=== PATIENT | female | born 1935 ===

== ENCOUNTER 2017-02-05 12:36 | Emergency (ER) | payer MEDICARE, MEDICAID ==
[2017-02-05 12:51] VITALS: BP 146/76; PULSE 92; RESP 18; TEMP 97.8; O2SAT 99
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
--- NOTE | 2017-02-05 14:56 | CT ---
PROCEDURE: CT HEAD WITHOUT CONTRAST. HISTORY: trauma COMPARISON: Head CT without contrast 12/11/2013. TECHNIQUE: Axial computed tomography images were obtained through the head/brain without intravenous contrast. Radiation dose: Total exam DLP = 788.16 mGy-cm. This CT exam was performed using one or more of the following dose reduction techniques: Automated exposure control, adjustment of the mA and/or kV according to patient size, and/or use of iterative reconstruction technique. FINDINGS: HEMORRHAGE: No intracranial hemorrhage. BRAIN: There is minimal expansion of the ventricular sulcal sternal spaces further compatible with minimal increase in diffuse cerebral atrophy. No cortical edema or mass-effect is identified and there is no suspicious extra-axial fluid collection appreciated above or below the tentorium. Posterior fossa contents are unremarkable in for chronic lacune at the right eveline. Midline brain anatomy also reflects an empty sella. VENTRICLES: Unremarkable. No hydrocephalus. CALVARIUM: No fracture of the calvarium or skullbase identified. PARANASAL SINUSES: Left sphenoid sinus disease again evident. MASTOID AIR CELLS: Unremarkable as visualized. No inflammatory changes. OTHER FINDINGS: None. IMPRESSION: No acute intracranial findings. Prior head CT 12/11/2013. Minimal increase in limited age-related neuro degenerative changes as discussed above.
--- NOTE | 2017-02-05 16:13 | RAD ---
PROCEDURE: Right Wrist Radiographs. HISTORY: trauma COMPARISON: None. FINDINGS: BONES: No destructive lesion is identified throughout the wrist and there is no fracture identified either. The navicular bone appears intact. JOINTS: Limited cortical sclerosis appreciate throughout the wrist joints diffusely. No subluxation or dislocation appreciable. No instability type pattern. SOFT TISSUES: Normal. OTHER FINDINGS: None. IMPRESSION: Limited degenerative joint changes seen throughout the right wrist without fracture subluxation or dislocation appreciable. No destructive bony lesion.
--- NOTE | 2017-02-05 17:06 | RAD ---
PROCEDURE: Cervical Spine Radiographs. HISTORY: Pain. COMPARISON: None. FINDINGS: BONES: Minimal spondylolisthesis of C3 posterior to C4 is likely degenerative. No fracture. Dens Intact. No destructive bony findings. DISC SPACES: Mild mid to inferior multilevel cervical spondylosis. SOFT TISSUES: Normal. No prevertebral soft tissue swelling. OTHER FINDINGS: No significant neural foraminal stenosis is seen on oblique imaging. IMPRESSION: Minimal spondylolisthesis C3-4, likely degenerative. No fracture identified.
--- NOTE | 2017-02-05 17:08 | RAD ---
PROCEDURE: Radiographs of the Lumbar Spine. HISTORY: pain COMPARISON: Lumbar spine radiographs 03/08/2013. FINDINGS: BONES: Interval minimal spondylolisthesis L4-5 likely on the basis of facet arthropathy. No spondylolysis identified on oblique imaging. Lumbar curvature is otherwise preserved. No destructive bony lesion identified. DISC SPACES: Mild disc height loss L4-5 and L5-S1 is moderately diminished in height. Mild multilevel lumbar spondylosis appears diffuse. OTHER FINDINGS: None. IMPRESSION: Grade 1 spondylolisthesis is minimal at L4-5, likely on degenerative facet joint basis rather than spondylolysis. Mild multilevel degenerative disease appreciated.
--- NOTE | 2017-02-05 17:10 | RAD ---
PROCEDURE: Left Knee Radiographs. HISTORY: Pain. COMPARISON: None. FINDINGS: BONES: No destructive bony lesions identified or fracture. JOINTS: Joint space narrowing at the medial femorotibial and patellofemoral compartments is appreciate combined with cortical sclerosis and osteophyte development compatible with advanced osteoarthritis. Limited joint space narrowing seen the lateral femorotibial compartment. JOINT EFFUSION: None. OTHER FINDINGS: Vascular calcification identified at the posterior thigh and upper knee soft tissues. IMPRESSION: Bicompartmental osteoarthritis. No acute fracture dislocation identified.
== END 2017-02-05 15:18 | disposition home or self-care (01) ==
LOC: H.ER 12:36
DX: S09.90XA Unspecified injury of head, initial encounter (principal); M62.838 Other muscle spasm; V43.62XA Car passenger injured in collision with other type car in traffic accident, initial encounter; Y92.410 Unspecified street and highway as the place of occurrence of the external cause; E03.9 Hypothyroidism, unspecified; E05.90 Thyrotoxicosis, unspecified without thyrotoxic crisis or storm; F32.9 Major depressive disorder, single episode, unspecified; F41.9 Anxiety disorder, unspecified; I10 Essential (primary) hypertension; Z86.73 Personal history of transient ischemic attack (TIA), and cerebral infarction without residual deficits

== ENCOUNTER 2018-01-08 07:11 | Emergency (ER) | payer MEDICARE, MEDICAID ==
[2018-01-08 07:20] VITALS: BMI 41.1
[2018-01-08] MEDS ORDERED: Sodium Chloride 0.9% 1,000 ML IV STA (08:00)
--- NOTE | 2018-01-08 08:19 | ED PDOC ---
HPI: Back Time Seen by Provider: 01/08/18 07:35 Chief Complaint (Nursing): Back Pain Chief Complaint (Provider): Back Pain History Per: Patient History/Exam Limitations: no limitations Onset/Duration Of Symptoms: Days (1) Additional Complaint(s): 82 years old female with history of CVA, hypertension and high cholesterol presents to the ED for evaluation of subjective numbness and sleepiness of legs bilaterally associated with nausea, frequency of urination and dysuria onset yesterday. Patient also complains of right lower back pain and epigastric pain. She denies any fever, diarrhea, constipation or shortness of breath. PMD: non provided Past Medical History Reviewed: Historical Data, Nursing Documentation, Vital Signs Vital Signs: Last Vital Signs Temp 98.2 F 01/08/18 07:18 Pulse 101 H 01/08/18 07:18 Resp 22 01/08/18 07:18 BP 174/75 H 01/08/18 07:18 Pulse Ox 95 01/08/18 07:18 - Medical History PMH: Anxiety, CVA (x2), Depression, HTN, Hypercholesterolemia, Hyperthyroidism, Hypothyroidism (thyroidectomy) Denies: Diabetes, Hepatitis, HIV, Seizures, Sexually Transmitted Disease - Surgical History Surgical History: No Surg Hx - Family History Family History: States: Unknown Family Hx - Social History Current smoker - smoking cessation education provided: No Alcohol: None Drugs: Denies - Home Medications Home Medications: Ambulatory Orders Medication Instructions Recorded Acetaminophen/Codeine Phosph 1 tab PO TID #10 tab 02/11/15 [Acetaminophen and Codeine Phosphate #3 300 mg] Esomeprazole Magnesium [Nexium 20 mg PO DAILY #21 ecc 02/11/15 24Hr] Sucralfate [Carafate] 1 gm PO QID PRN #30 tablet 10/13/15 Azithromycin [Zithromax] 250 mg PO DAILY #6 tab 05/24/16 Naproxen [Naprosyn] 500 mg PO Q12H #20 tab 05/24/16 Metaxalone [Skelaxin] 800 mg PO BID PRN #10 tablet 02/05/17 Sulfamethoxazole/Trimethoprim 1 tab PO BID #6 tab 01/08/18 [Bactrim DS 800 mg-160 mg] - Allergies Allergies/Adverse Reactions: Allergies Allergy/AdvReac Type Severity Reaction Status Date / Time No Known Allergies Allergy Verified 10/13/15 19:41 Review of Systems ROS Statement: Except As Marked, All Systems Reviewed And Found Negative Constitutional: Negative for: Fever Respiratory: Negative for: Shortness of Breath Gastrointestinal: Positive for: Nausea, Abdominal Pain (epigastric). Negative for: Diarrhea Genitourinary Female: Positive for: Dysuria, Frequency Musculoskeletal: Positive for: Back Pain (Right lower) Physical Exam - Reviewed Vital Signs Reviewed: Yes - Physical Exam Appears: Positive for: Non-toxic, No Acute Distress Head Exam: Positive for: ATRAUMATIC, NORMOCEPHALIC Skin: Positive for: Normal Color, Warm, Dry ENT: Positive for: Normal ENT Inspection Respiratory: Positive for: Normal Breath Sounds, Other (Good air entry). Negative for: Wheezing, Respiratory Distress Gastrointestinal/Abdominal: Positive for: Tenderness (Epigastric) Back: Positive for: R CVA Tenderness Extremity: Positive for: Normal ROM, Other (Strength of 5/5). Negative for: Swelling Neurologic/Psych: Positive for: Alert, Oriented (x3). Negative for: Motor/ Sensory Deficits - Laboratory Results Result Diagrams: 01/08/18 09:09 01/08/18 09:09 Urine dip results: Negative for: Leukocyte Esterase, Blood, Nitrate, Ketones, Glucose, Bilirubin, Protein - ECG O2 Sat by Pulse Oximetry: 95 (RA) Pulse Ox Interpretation: Normal Medical Decision Making Medical Decision Making: Time: 758 Initial Impression: cistitis and pyelonephritis Initial Plan: --Labs --Pepcid 20 mg IVP ----- Scribe Attestation: Documented by Anaya Ramos, acting as a scribe for Mary Mendez MD. Provider Scribe Attestation: All medical record entries made by the Scribe were at my direction and personally dictated by me. I have reviewed the chart and agree that the record accurately reflects my personal performance of the history, physical exam, medical decision making, and the department course for this patient. I have also personally directed, reviewed, and agree with the discharge instructions and disposition. Disposition - Clinical Impression Clinical Impression: Dysuria - Patient ED Disposition Is Patient to be Admitted: No Doctor Will See Patient In The: Office Counseled Patient/Family Regarding: Diagnosis, Need For Followup, Rx Given - Disposition Referrals: Jose Hughes MD [Staff Provider] - Disposition: Routine/Home Disposition Time: 10:45 Condition: STABLE Prescriptions: Sulfamethoxazole/Trimethoprim [Bactrim DS 800 mg-160 mg] 1 tab PO BID #6 tab Instructions: Dysuria, Adult (DC) Forms: [employer] (Albanian) Print Language: CITIZEN OF [place] - POA Present On Arrival: None
[2018-01-08 09:13] LABS: BASO # 0.1 K/uL (0.0-0.2); BASO % 0.8 % (0.0-2.0); EOS # 0.1 K/uL (0.0-0.7); EOS % 1.1 % (0.0-4.0); LYMPH # 1.8 K/uL (1.0-4.3); LYMPH % 17.8 % (20.0-40.0); MEAN CELL VOLUME 77.4 fl (81.0-99.0); MEAN CORPUSCULAR HEMOGLOBIN 25.8 pg (27.0-31.0); MEAN CORPUSCULAR HGB CONC 33.3 g/dL (33.0-37.0); MEAN PLATELET VOLUME 7.7 fl (7.2-11.7); MONO # 0.5 K/uL (0.0-0.8); MONO % 4.8 % (0.0-10.0); NEUT # 7.5 K/uL (1.8-7.0); NEUT % 75.5 % (50.0-75.0); RBC 4.67 Mil/uL (3.80-5.20); RED CELL DISTRIBUTION WIDTH 17.6 % (11.5-14.5)
[2018-01-08 09:35] LABS: BLOOD UREA NITROGEN 19 mg/dl (7-17); GFR NON-AFRICAN AMERICAN > 60
[2018-01-08 09:39] LABS: ALB/GLOB RATIO 1.1 (1.0-2.1); ALBUMIN 4.5 g/dL (3.5-5.0); ALT/SGPT 14 U/L (9-52); AST/SGOT 69 U/L (14-36)
[2018-01-08 11:57] VITALS: BP 142/70; PULSE 76; RESP 17; TEMP 98; O2SAT 100
== END 2018-01-08 11:57 | disposition home or self-care (01) ==
LOC: H.ER 07:11
DX: R30.0 Dysuria (principal); E03.9 Hypothyroidism, unspecified; E05.90 Thyrotoxicosis, unspecified without thyrotoxic crisis or storm; E78.00 Pure hypercholesterolemia, unspecified; I10 Essential (primary) hypertension
CPT/HCPCS: 80053; 85025; 96374; 99283; J7030

== ENCOUNTER 2018-03-01 12:11 | Inpatient (IN) | payer MEDICARE, MEDICAID ==
[2018-03-01 12:11] VITALS: BMI 41.1
[2018-03-01] MEDS ORDERED: Sodium Chloride 0.9% 1,000 ML IV STA ×2 (12:54→14:17)
--- NOTE | 2018-03-01 13:05 | ED PDOC ---
HPI: CCC, URI, Sore Throat Time Seen by Provider: 03/01/18 12:41 Chief Complaint (Nursing): Fever Chief Complaint (Provider): Fever, sore throat History Per: Patient History/Exam Limitations: no limitations Onset/Duration Of Symptoms: Days (x2) Location Of Pain: Throat Associated Symptoms: Fever, Sore Throat, Nausea. denies: Vomiting, Diarrhea Additional Complaint(s): Vivian Parada is an 82 year old female, with a past medical history of HTN, hyperlipidemia and hypothyroidism, who presents to the emergency department complaining of fever, sore throat and difficulty swallowing associated with nausea onset for x2 days. Patient denies any vomiting, diarrhea or abdominal pain. No further medical complaints. PMD: None provided. Past Medical History Reviewed: Historical Data, Nursing Documentation, Vital Signs Vital Signs: Last Vital Signs Temp 99.3 F 03/01/18 12:20 Pulse 127 H 03/01/18 12:20 Resp 16 03/01/18 12:20 BP 178/79 H 03/01/18 12:20 Pulse Ox 94 L 03/01/18 12:20 - Medical History PMH: Anxiety, CVA (x2), Depression, HTN, Hypercholesterolemia, Hyperthyroidism, Hypothyroidism (thyroidectomy) Denies: Diabetes, Hepatitis, HIV, Seizures, Sexually Transmitted Disease - Surgical History Surgical History: No Surg Hx - Family History Family History: States: Unknown Family Hx - Allergies Allergies/Adverse Reactions: Allergies Allergy/AdvReac Type Severity Reaction Status Date / Time No Known Allergies Allergy Verified 03/01/18 12:20 Review of Systems ROS Statement: Except As Marked, All Systems Reviewed And Found Negative Constitutional: Positive for: Fever ENT: Positive for: Throat Pain Gastrointestinal: Positive for: Nausea. Negative for: Vomiting, Abdominal Pain, Diarrhea Physical Exam - Reviewed Nursing Documentation Reviewed: Yes Vital Signs Reviewed: Yes - Physical Exam Appears: Positive for: No Acute Distress Head Exam: Positive for: ATRAUMATIC, NORMAL INSPECTION, NORMOCEPHALIC Skin: Positive for: Normal Color, Warm, Dry Eye Exam: Positive for: Normal appearance, EOMI, PERRL ENT: Positive for: Other (throat is swollen with questionable deviation of uvula to the left. Positive trismus with hot-potato voice.) Neck: Positive for: Normal, Painless ROM, Supple Cardiovascular/Chest: Positive for: Regular Rate, Rhythm. Negative for: Murmur Respiratory: Positive for: Normal Breath Sounds. Negative for: Respiratory Distress Gastrointestinal/Abdominal: Positive for: Normal Exam, Soft. Negative for: Tenderness, Guarding, Rebound Back: Positive for: Normal Inspection. Negative for: L CVA Tenderness, R CVA Tenderness, Vertebral Tenderness Extremity: Positive for: Normal ROM (upper and lower extremities). Negative for: Deformity, Swelling Neurologic/Psych: Positive for: Alert, Oriented - Laboratory Results Result Diagrams: 03/01/18 11:50 03/01/18 11:50 - ECG O2 Sat by Pulse Oximetry: 94 (RA) Pulse Ox Interpretation: Abnormal Medical Decision Making Medical Decision Making: Time: 12:41 Initial Plan: --VBG Shock Panel --Neck Soft Tissue w/ contrast [CT] --CMP --CBC w/ differential --Cleocin 600 mg Sodium Chloride 0.9% 50 ml IVPB --Sodium Chloride 1,000 ml IV 100 mls/hr --Zofran Inj 4 mg IVP --Blood culture --Reevaluation 16:[address] FINDINGS: NASOPHARYNX: Mild mucosal thickening noted in the nasopharynx. SUPRAHYOID NECK: [id number] diffuse mucosal thickening noted in the oropharynx, oral cavity, parapharyngeal space and retropharyngeal space. Moderate enlargement of the palatine tonsils noted right more than left. There is no CT evidence of peritonsillar abscess formation. INFRAHYOID NECK: Unremarkable larynx, hypopharynx, and supraglottic space. Vocal cords intact. MASS: None. GLANDS: Parotid and submandibular glands unremarkable. The thyroid gland is not visualized. LYMPH NODES: Mildly enlarged level 1 and level 2 lymph nodes noted. CERVICAL SPINE: No fracture or focal lesion. VASCULAR STRUCTURES: Atherosclerotic disease and scattered calcification are noted in the carotid arteries. OTHER FINDINGS: Mucosal thickening noted in the left sphenoid sinus IMPRESSION: Moderate enlargement of the palatine tonsil without evidence of peritonsillar abscess. Diffuse [id number] mucosal thickening in the nasal and oral pharynx noted. Additional findings as described above. ----- Scribe Attestation: Documented by Jovani Ledbetter, acting as a scribe for Gigi Coughlin MD. Provider Scribe Attestation: All medical record entries made by the Scribe were at my direction and personally dictated by me. I have reviewed the chart and agree that the record accurately reflects my personal performance of the history, physical exam, medical decision making, and the department course for this patient. I have also personally directed, reviewed, and agree with the discharge instructions and disposition. Disposition - Clinical Impression Clinical Impression: Tonsillitis, Sepsis - Patient ED Disposition Is Patient to be Admitted: Yes - Disposition Disposition Time: 16:48 Condition: FAIR Forms: [employer] (Yi) - Pt Status Changed To: Hospital Disposition Of: Inpatient - Admit Certification Admit to Inpatient:: After my assessment, the patient will require hospitalization for at least two midnights. This is because of the severity of symptoms shown, intensity of services needed, and/or the medical risk in this patient being treated as an outpatient. - POA Present On Arrival: None
[2018-03-01] MEDS ORDERED: Clindamycin 600mg/50ml NS 600 MG/50 ML BAG IVPB SCH (13:30)
[2018-03-01] MEDS: Dexamethasone 6 MG in Sodium Chloride 0.9% 50 ML IVPB STA ×2 (13:40→13:59)
[2018-03-01] MEDS ORDERED: Dexamethasone 4 mg/1 ml IV ONE (13:45)
[2018-03-01 13:58] LABS: VENOUS BLOOD GAS BASE EXCESS 5.6 mmol/L (0.0-2.0); VENOUS BLOOD GAS PCO2 45 mmHg (40-60); VENOUS BLOOD GAS PO2 33 mm/Hg (30-55); VENOUS BLOOD PH 7.44 (7.32-7.43)
[2018-03-01] MEDS ORDERED: Dexamethasone 4 mg/1 ml ONE (14:03)
[2018-03-01] MEDS ORDERED: Acetaminophen 325 MG/10.15 ML ONE (14:12)
[2018-03-01] MEDS ORDERED: Clindamycin 600mg/50ml D5W 600 MG/50 ML VIAL IVPB SCH (14:15)
[2018-03-01 14:26] LABS: BASO # 0.1 K/uL (0.0-0.2); BASO % 0.3 % (0.0-2.0); EOS % 0.1 % (0.0-4.0); LYMPH % 5.3 % (20.0-40.0); MEAN CELL VOLUME 78.5 fl (81.0-99.0); MEAN CORPUSCULAR HEMOGLOBIN 25.2 pg (27.0-31.0); MEAN CORPUSCULAR HGB CONC 32.2 g/dL (33.0-37.0); MEAN PLATELET VOLUME 7.7 fl (7.2-11.7); MONO % 5.4 % (0.0-10.0); NEUT # 17.1 K/uL (1.8-7.0); NEUT % 88.9 % (50.0-75.0); PLATELET COUNT 277 K/uL (130-400); RBC 4.76 Mil/uL (3.80-5.20); RED CELL DISTRIBUTION WIDTH 17.1 % (11.5-14.5); WHITE BLOOD COUNT 19.2 K/uL (4.8-10.8)
[2018-03-01 14:30] LABS: ALB/GLOB RATIO 1.1 (1.0-2.1); ALBUMIN 4.5 g/dL (3.5-5.0); ALT/SGPT 30 U/L (9-52); AST/SGOT 45 U/L (14-36); BLOOD UREA NITROGEN 15 mg/dl (7-17); GFR NON-AFRICAN AMERICAN 60
[2018-03-01] MEDS ORDERED: Acetaminophen 160 mg/5 ml UD PO STA (14:33)
[2018-03-01] MEDS ORDERED: Acetaminophen 325 MG/10.15 ML PO STA (14:38)
[2018-03-01] MEDS ORDERED: Clindamycin 600mg/50ml D5W 600 MG/50 ML VIAL IVPB ONE (14:45)
[2018-03-01] MEDS ORDERED: Piperacillin/Tazobact 3.375 GM in Sodium Chloride 0.9% 100 ML IVPB STA (15:03)
[2018-03-01] MEDS ORDERED: Piperacillin/Tazobact 3.375 gm Inj IVPB ONE ×2 (15:22→21:36)
[2018-03-01 15:23] LABS: BANDS 5 % (0-2); EOSINOPHIL 1 % (0-7); LYMPHOCYTE 4 % (20-50); MONOCYTE 4 % (0-10); NEUTROPHIL 86 % (42-75); PLATELET ESTIMATE NORMAL (NORMAL); TOTAL CELLS COUNTED 100
[2018-03-01 15:24] LABS: ANISOCYTOSIS SLIGHT; MICROCYTOSIS SLIGHT
[2018-03-01] MEDS ORDERED: Iohexol 300 100 ML IJ ONE (15:49)
[2018-03-01] MEDS ORDERED: Sodium Chloride 0.9% 50 ML IV ONE (15:49)
--- NOTE | 2018-03-01 16:39 | CT ---
Date of service: 03/01/2018 PROCEDURE: CT NECK WITH CONTRAST HISTORY: peritonsillar abscess COMPARISON: None available. TECHNIQUE: CT of the neck with intravenous contrast. Coronal and sagittal reformats generated. Intravenous contrast dose: 80 cc of Omnipaque 300 intravenously. Radiation dose: Total exam DLP = 354.42 mGy-cm. This CT exam was performed using one or more of the following dose reduction techniques: Automated exposure control, adjustment of the mA and/or kV according to patient size, and/or use of iterative reconstruction technique. FINDINGS: NASOPHARYNX: Mild mucosal thickening noted in the nasopharynx. SUPRAHYOID NECK: [id number] diffuse mucosal thickening noted in the oropharynx, oral cavity, parapharyngeal space and retropharyngeal space. Moderate enlargement of the palatine tonsils noted right more than left. There is no CT evidence of peritonsillar abscess formation. INFRAHYOID NECK: Unremarkable larynx, hypopharynx, and supraglottic space. Vocal cords intact. MASS: None. GLANDS: Parotid and submandibular glands unremarkable. The thyroid gland is not visualized. LYMPH NODES: Mildly enlarged level 1 and level 2 lymph nodes noted. CERVICAL SPINE: No fracture or focal lesion. VASCULAR STRUCTURES: Atherosclerotic disease and scattered calcification are noted in the carotid arteries. OTHER FINDINGS: Mucosal thickening noted in the left sphenoid sinus IMPRESSION: Moderate enlargement of the palatine tonsil without evidence of peritonsillar abscess. Diffuse [id number] mucosal thickening in the nasal and oral pharynx noted. Additional findings as described above.
[2018-03-01 17:56] LABS: SQUAMOUS EPITHIAL < 1 /hpf (0-5); URINE BILIRUBIN NEGATIVE (NEGATIVE); URINE BLOOD MODERATE (NEGATIVE); URINE CLARITY CLEAR (Clear); URINE COLOR YELLOW (YELLOW); URINE GLUCOSE (UA) NEG (Normal); URINE LEUKOCYTE ESTERASE NEG Leu/uL (Negative); URINE PROTEIN NEGATIVE (NEGATIVE); URINE UROBILINOGEN 0.2-1.0 mg/dL (0.2-1.0)
[2018-03-01 17:58] LABS: VENOUS BLOOD GAS PCO2 45 mmHg (40-60); VENOUS BLOOD GAS PO2 43 mm/Hg (30-55); VENOUS BLOOD PH 7.42 (7.32-7.43)
--- NOTE | 2018-03-01 18:24 | CP.PCM.HP ---
<Froylan Arellano - Last Filed: 03/01/18 20:33> History of Present Illness - History of Present Illness History of Present Illness: This is 82 y/o female with PMH of HTN, hypothyroid, and CVA x2 admitted to [facility] for evaluation and treatment of tonsillitis and sepsis. Patient came in c/o 2 days history of sore throat, difficulty swallowing, subjective fever and generalized weakness. Patient denies any sick contact at home, lives alone, sore throat started all the sudden which is associated with b/l ear discomfort and subjective fever. Patient is reporting difficulty swallowing due to pain, didnt take her medications today due to pain. + nausea, denies any vomiting, chest pain, SOB, dizziness, abdominal pain or dysuria. PMD: dr johnson PMH: HTN, hypothyroid, and CVA x2 PSH: Thyroid removed, BTL, R knee surgery Allg: NKDA Meds: As per med recs SH: Denies any alcohol/smoking or illicit drug use FH: Denies any cancers, + for DM and HTN ROS: As per HPI ED course: VS: 101.7, 127HR, BP 178/78, Spo2 94% CBC: WBC 19.2 CMP: wnl VBG: Lact 2.2--> 0.9 f/u Ucx and Bcx CXR: Congested, f/u official read f/u Rapid strep and Influenza UA negative ENT consult, Dr. Mccormick S/p Zosyn, Clinda, tylenol, IVF and Dexomethason CT Throat: IMPRESSION: Moderate enlargement of the palatine tonsil without evidence of peritonsillar abscess. Diffuse [id number] mucosal thickening in the nasal and oral pharynx noted. Additional findings as described above. Present on Admission - Present on Admission Any Indicators Present on Admission: No Past Patient History - Infectious Disease Hx of Infectious Diseases: None - Past Social History Smoking Status: Never Smoked - CARDIAC Hx Hypercholesterolemia: Yes Hx Hypertension: Yes - PULMONARY Hx Tuberculosis: No - NEUROLOGICAL Hx Seizures: No - ENDOCRINE/METABOLIC Hx Hyperthyroidism: Yes Hx Hypothyroidism: Yes (thyroidectomy) - HEMATOLOGICAL/ONCOLOGICAL Hx Human Immunodeficiency Virus (HIV): No - GENITOURINARY/GYNECOLOGICAL Hx Sexually Transmitted Disorders: No - PSYCHIATRIC Hx Anxiety: Yes Hx Depression: Yes - SURGICAL HISTORY Hx Musculoskeletal Surgery: Yes (right foot) Hx Thyroidectomy: Yes - ANESTHESIA Hx Anesthesia: Yes Meds Allergies/Adverse Reactions: Allergies Allergy/AdvReac Type Severity Reaction Status Date / Time No Known Allergies Allergy Verified 03/01/18 12:20 Physical Exam - Constitutional Appears: No Acute Distress - Head Exam Head Exam: NORMAL INSPECTION - Eye Exam Eye Exam: EOMI, Normal appearance, PERRL Pupil Exam: NORMAL ACCOMODATION - ENT Exam ENT Exam: Mucous Membranes Moist, Normal External Ear Exam, TM's Normal Bilaterally Additional comments: b/l pharyngeal swelling and erythema Red swollen tonsils No exudate was seen - Neck Exam Neck exam: Positive for: Tenderness - Respiratory Exam Respiratory Exam: Clear to Auscultation Bilateral, NORMAL BREATHING PATTERN. absent: Accessory Muscle Use - Cardiovascular Exam Cardiovascular Exam: REGULAR RHYTHM, +S1, +S2 - GI/Abdominal Exam GI & Abdominal Exam: Normal Bowel Sounds - Extremities Exam Extremities exam: Positive for: normal capillary refill, normal inspection. Negative for: pedal edema, tenderness - Back Exam Back exam: absent: CVA tenderness (L), CVA tenderness (R) - Neurological Exam Neurological exam: Alert, CN II-XII Intact, Oriented x3 - Psychiatric Exam Psychiatric exam: Normal Affect - Skin Skin Exam: Dry, Intact, Normal Color, Warm Results - Vital Signs Recent Vital Signs: Last Vital Signs Temp 101.7 F H 03/01/18 14:41 Pulse 127 H 03/01/18 12:20 Resp 16 03/01/18 12:20 BP 178/79 H 03/01/18 12:20 Pulse Ox 94 L 03/01/18 16:48 - Labs Result Diagrams: 03/01/18 11:50 03/01/18 11:50 Labs: Laboratory Results - last 24 hr 03/01/18 03/01/18 03/01/18 11:50 11:50 13:46 WBC 19.2 H D RBC 4.76 Hgb 12.0 Hct 37.4 MCV 78.5 L MCH 25.2 L MCHC 32.2 L RDW 17.1 H Plt Count 277 MPV 7.7 Neut % (Auto) 88.9 H Lymph % (Auto) 5.3 L [place] % (Auto) 5.4 Eos % (Auto) 0.1 Baso % (Auto) 0.3 Neut # (Auto) 17.1 H Lymph # (Auto) 1.0 [place] # (Auto) 1.0 H Eos # (Auto) 0.0 Baso # (Auto) 0.1 Neutrophils % (Manual) 86 H Band Neutrophils % 5 H Lymphocytes % (Manual) 4 L Monocytes % (Manual) 4 Eosinophils % (Manual) 1 Platelet Estimate Normal Anisocytosis (manual) Slight Microcytosis (manual) Slight pO2 33 VBG pH 7.44 H VBG pCO2 45 VBG HCO3 28.5 VBG Total CO2 32.0 H VBG O2 Sat (Calc) 69.7 H VBG Base Excess 5.6 H VBG Potassium 4.2 Glucose 136 H Lactate 2.2 H FiO2 21.0 Sodium 137 135.0 Potassium 3.9 Chloride 97 L 99.0 Carbon Dioxide 29 Anion Gap 15 BUN 15 Creatinine 0.9 Est GFR ( Amer) > 60 Est GFR (Non-Af Amer) 60 Random Glucose 131 H Calcium 9.0 Total Bilirubin 0.4 AST 45 H D ALT 30 Alkaline Phosphatase 107 Total Protein 8.6 H Albumin 4.5 Globulin 4.2 H Albumin/Globulin Ratio 1.1 Venous Blood Potassium 4.2 Urine Color Urine Clarity Urine pH Ur Specific Omega Urine Protein Urine Glucose (UA) Urine Ketones Urine Blood Urine Nitrate Urine Bilirubin Urine Urobilinogen Ur Leukocyte Esterase Urine RBC (Auto) Urine Microscopic WBC Ur Squamous Epith Cells 03/01/18 03/01/18 17:45 17:50 WBC RBC Hgb Hct MCV MCH MCHC RDW Plt Count MPV Neut % (Auto) Lymph % (Auto) Bosque % (Auto) Eos % (Auto) Baso % (Auto) Neut # (Auto) Lymph # (Auto) [place] # (Auto) Eos # (Auto) Baso # (Auto) Neutrophils % (Manual) Band Neutrophils % Lymphocytes % (Manual) Monocytes % (Manual) Eosinophils % (Manual) Platelet Estimate Anisocytosis (manual) Microcytosis (manual) pO2 43 VBG pH 7.42 VBG pCO2 45 VBG HCO3 27.6 VBG Total CO2 30.6 H VBG O2 Sat (Calc) 83.5 H VBG Base Excess 4.0 H VBG Potassium 3.7 Glucose 167 H Lactate 0.9 FiO2 21.0 Sodium 133.0 Potassium Chloride 100.0 Carbon Dioxide Anion Gap BUN Creatinine Est GFR ( Amer) Est GFR (Non-Af Amer) Random Glucose Calcium Total Bilirubin AST ALT Alkaline Phosphatase Total Protein Albumin Globulin Albumin/Globulin Ratio Venous Blood Potassium 3.7 Urine Color Yellow Urine Clarity Clear Urine pH 6.0 Ur Specific Omega 1.025 Urine Protein Negative Urine Glucose (UA) Neg Urine Ketones Negative Urine Blood Moderate Urine Nitrate Negative Urine Bilirubin Negative Urine Urobilinogen 0.2-1.0 Ur Leukocyte Esterase Neg Urine RBC (Auto) 2 Urine Microscopic WBC 1 Ur Squamous Epith Cells < 1 Assessment & Plan - Assessment and Plan (Free Text) Assessment: A/P: 82 y/o female with PMH of HTN, hypothyroid, and CVA x2 admitted to [facility] for evaluation and treatment of tonsillitis and sepsis. Sepsis, criterias met with elevated HR, Tm and tonsillitis - Acute - S/p IVF, Zosyna nd clinda - Normal Lactate/VBG - C/w IVF - C/w Zosyn 3.3gm Q12, day # 0 - C/w Clinda 600mg Q8H, day # 0 - F/u Ucx and Bcx - Monitor VS closely Tonsillitis/Pharyngitis - Acute - CT: Tonsillitis, no abscess - ENT consult, Dr. Mccormick, f/u recommendations - Cephacol, c/w symptomatic management - Rapid Strep Throat negative, repeat in morning - C/w Fluids and Abx - C/w Dexamethason 6mg Q8H - Advance diet as tolerated Positive influenza A - STart Tamiflu 75mg PO BID for 0/5days - Encourage PO intake - Symptomatic/supportive management Congested CXR, possible fluid overload - F/u official CXR - Follow up Echo in morning - F/p pro-BNP Hypertension - Chronic - Controlled - C/w Home medications: Norvasc 10mg daily, HCTZ/Losartan 12.5/50mg 2tabs daily - C/w Aspirin and Statin - F/u HBA1C, Lipids, TSH Gastritis - Chronic, controlled - C/w Protonix 40mg PO daily Mood disorders - C/w Klonopin and Remeron DVT PPX - SCD for now <Zurdo Vann - Last Filed: 03/02/18 09:39> Results - Vital Signs Recent Vital Signs: Last Vital Signs Temp 97.9 F 03/02/18 09:11 Pulse 86 03/02/18 09:11 Resp 18 03/02/18 09:11 BP 138/70 03/02/18 09:11 Pulse Ox 97 03/02/18 09:11 - Labs Result Diagrams: 03/02/18 06:00 03/01/18 11:50 Labs: Laboratory Results - last 24 hr 03/01/18 03/01/18 03/01/18 11:50 11:50 13:46 WBC 19.2 H D RBC 4.76 Hgb 12.0 Hct 37.4 MCV 78.5 L MCH 25.2 L MCHC 32.2 L RDW 17.1 H Plt Count 277 MPV 7.7 Neut % (Auto) 88.9 H Lymph % (Auto) 5.3 L [place] % (Auto) 5.4 Eos % (Auto) 0.1 Baso % (Auto) 0.3 Neut # (Auto) 17.1 H Lymph # (Auto) 1.0 [place] # (Auto) 1.0 H Eos # (Auto) 0.0 Baso # (Auto) 0.1 Neutrophils % (Manual) 86 H Band Neutrophils % 5 H Lymphocytes % (Manual) 4 L Monocytes % (Manual) 4 Eosinophils % (Manual) 1 Platelet Estimate Normal Plt Clumps, EDTA Large Platelets Anisocytosis (manual) Slight Microcytosis (manual) Slight pO2 33 VBG pH 7.44 H VBG pCO2 45 VBG HCO3 28.5 VBG Total CO2 32.0 H VBG O2 Sat (Calc) 69.7 H VBG Base Excess 5.6 H VBG Potassium 4.2 Glucose 136 H Lactate 2.2 H FiO2 21.0 Sodium 137 135.0 Potassium 3.9 Chloride 97 L 99.0 Carbon Dioxide 29 Anion Gap 15 BUN 15 Creatinine 0.9 Est GFR ( Amer) > 60 Est GFR (Non-Af Amer) 60 Random Glucose 131 H Calcium 9.0 Total Bilirubin 0.4 AST 45 H D ALT 30 Alkaline Phosphatase 107 Total Protein 8.6 H Albumin 4.5 Globulin 4.2 H Albumin/Globulin Ratio 1.1 Free T4 Venous Blood Potassium 4.2 Urine Color Urine Clarity Urine pH Ur Specific Omega Urine Protein Urine Glucose (UA) Urine Ketones Urine Blood Urine Nitrate Urine Bilirubin Urine Urobilinogen Ur Leukocyte Esterase Urine RBC (Auto) Urine Microscopic WBC Ur Squamous Epith Cells Influenza Typ A,B (EIA) Grp A Beta Strep Ag 03/01/18 03/01/18 03/01/18 17:45 17:50 19:01 WBC RBC Hgb Hct MCV MCH MCHC RDW Plt Count MPV Neut % (Auto) Lymph % (Auto) Bosque % (Auto) Eos % (Auto) Baso % (Auto) Neut # (Auto) Lymph # (Auto) [place] # (Auto) Eos # (Auto) Baso # (Auto) Neutrophils % (Manual) Band Neutrophils % Lymphocytes % (Manual) Monocytes % (Manual) Eosinophils % (Manual) Platelet Estimate Plt Clumps, EDTA Large Platelets Anisocytosis (manual) Microcytosis (manual) pO2 43 VBG pH 7.42 VBG pCO2 45 VBG HCO3 27.6 VBG Total CO2 30.6 H VBG O2 Sat (Calc) 83.5 H VBG Base Excess 4.0 H VBG Potassium 3.7 Glucose 167 H Lactate 0.9 FiO2 21.0 Sodium 133.0 Potassium Chloride 100.0 Carbon Dioxide Anion Gap BUN Creatinine Est GFR ( Amer) Est GFR (Non-Af Amer) Random Glucose Calcium Total Bilirubin AST ALT Alkaline Phosphatase Total Protein Albumin Globulin Albumin/Globulin Ratio Free T4 Venous Blood Potassium 3.7 Urine Color Yellow Urine Clarity Clear Urine pH 6.0 Ur Specific Omega 1.025 Urine Protein Negative Urine Glucose (UA) Neg Urine Ketones Negative Urine Blood Moderate Urine Nitrate Negative Urine Bilirubin Negative Urine Urobilinogen 0.2-1.0 Ur Leukocyte Esterase Neg Urine RBC (Auto) 2 Urine Microscopic WBC 1 Ur Squamous Epith Cells < 1 Influenza Typ A,B (EIA) Grp A Beta Strep Ag Negative 03/01/18 03/02/18 03/02/18 19:01 06:00 06:00 WBC 22.9 H RBC 4.80 Hgb 12.1 Hct 38.6 MCV 80.4 L MCH 25.3 L MCHC 31.4 L RDW 17.3 H Plt Count 264 MPV 7.8 Neut % (Auto) 93.2 H Lymph % (Auto) 5.0 L [place] % (Auto) 1.7 Eos % (Auto) 0.0 Baso % (Auto) 0.1 Neut # (Auto) 21.4 H Lymph # (Auto) 1.1 [place] # (Auto) 0.4 Eos # (Auto) 0.0 Baso # (Auto) 0.0 Neutrophils % (Manual) 92 H Band Neutrophils % Lymphocytes % (Manual) 7 L Monocytes % (Manual) 1 Eosinophils % (Manual) Platelet Estimate Normal Plt Clumps, EDTA Present Large Platelets Present Anisocytosis (manual) Slight Microcytosis (manual) pO2 VBG pH VBG pCO2 VBG HCO3 VBG Total CO2 VBG O2 Sat (Calc) VBG Base Excess VBG Potassium Glucose Lactate FiO2 Sodium Potassium Chloride Carbon Dioxide Anion Gap BUN Creatinine Est GFR ( Amer) Est GFR (Non-Af Amer) Random Glucose Calcium Total Bilirubin AST ALT Alkaline Phosphatase Total Protein Albumin Globulin Albumin/Globulin Ratio Free T4 1.65 Venous Blood Potassium Urine Color Urine Clarity Urine pH Ur Specific Omega Urine Protein Urine Glucose (UA) Urine Ketones Urine Blood Urine Nitrate Urine Bilirubin Urine Urobilinogen Ur Leukocyte Esterase Urine RBC (Auto) Urine Microscopic WBC Ur Squamous Epith Cells Influenza Typ A,B (EIA) Pos for influenza a H Grp A Beta Strep Ag Attending/Attestation - Attestation I have personally seen and examined this patient.: Yes I have fully participated in the care of the patient.: Yes I have reviewed all pertinent clinical information: Yes Notes (Text): Patient seen and examined with the resident, agree with above
[2018-03-01] MEDS ORDERED: Patient's Own Med (Diclofenac Sodium [Voltaren] 1 APPL) TOP PRN (18:34)
[2018-03-01] MEDS: Piperacillin/Tazobact 3.375 GM in Sodium Chloride 0.9% 100 ML IVPB SCH (21:40)
[2018-03-02] MEDS ORDERED: Clindamycin 600mg/50ml NS 600 MG/50 ML BAG IVPB SCH (01:00)
[2018-03-02] MEDS ORDERED: Dexamethasone 6 MG in Sodium Chloride 0.9% 50 ML IVPB SCH (01:00)
[2018-03-02] MEDS ORDERED: Dexamethasone 4 mg/1 ml ONE ×2 (01:11→12:04)
[2018-03-02] MEDS: Dexamethasone 4 mg/1 ml IVP SCH ×3 (01:12→17:56)
[2018-03-02] MEDS: Clindamycin 600mg/50ml D5W 600 MG/50 ML VIAL IVPB SCH ×4 (01:15→17:55)
[2018-03-02] MEDS: Levothyroxine 100 MCG TAB PO SCH (06:27)
[2018-03-02 07:35] LABS: BASO % 0.1 % (0.0-2.0); HEMOGLOBIN 12.1 g/dL (12.0-16.0); LYMPH # 1.1 K/uL (1.0-4.3); MEAN CELL VOLUME 80.4 fl (81.0-99.0); MEAN CORPUSCULAR HEMOGLOBIN 25.3 pg (27.0-31.0); MEAN CORPUSCULAR HGB CONC 31.4 g/dL (33.0-37.0); MEAN PLATELET VOLUME 7.8 fl (7.2-11.7); MONO # 0.4 K/uL (0.0-0.8); MONO % 1.7 % (0.0-10.0); NEUT # 21.4 K/uL (1.8-7.0); NEUT % 93.2 % (50.0-75.0); NRBC % 0.1 % (0.0-0.0); PLATELET COUNT 264 K/uL (130-400); RED CELL DISTRIBUTION WIDTH 17.3 % (11.5-14.5); WHITE BLOOD COUNT 22.9 K/uL (4.8-10.8)
[2018-03-02 08:39] LABS: LYMPHOCYTE 7 % (20-50); MONOCYTE 1 % (0-10); NEUTROPHIL 92 % (42-75); TOTAL CELLS COUNTED 100
[2018-03-02 08:40] LABS: ANISOCYTOSIS SLIGHT; PLATELET ESTIMATE NORMAL (NORMAL)
[2018-03-02 08:42] LABS: LARGE PLATELETS PRESENT
[2018-03-02 08:43] LABS: PLATELET CLUMPS PRESENT
--- NOTE | 2018-03-02 09:31 | CP.PCM.PN ---
<Boyd Novoa - Last Filed: 03/02/18 14:10> Subjective - Date & Time of Evaluation Date of Evaluation: 03/02/18 Time of Evaluation: 09:27 - Subjective Subjective: 82 y/o female patient seen and evaluated for tonsillitis and sepsis. Patient Patient states that she still has sore throat. She states that her she is still feverish but better than when she was last seen. She states that she had chills yesterday but today she didn't have any. She denies any nausea since she was last seen, denies any vomiting, chest pain, dizziness, abdominal pain or dysuria. She states that she has some SOB. Objective - Vital Signs/Intake and Output Vital Signs (last 24 hours): Temp Pulse Resp BP Pulse Ox 97.9 F 86 18 138/70 97 03/02/18 09:11 03/02/18 09:11 03/02/18 09:11 03/02/18 09:11 03/02/18 09:11 - Medications Medications: Current Medications Acetaminophen (Tylenol 325mg Tab) 650 mg PO Q6 PRN PRN Reason: Fever >100.4 F Amlodipine Besylate (Norvasc) 10 mg PO DAILY [facility] Aspirin (Ecotrin) 81 mg PO DAILY [facility] Benzocaine/Menthol (Cepacol Sore Throat) 1 trav PO Q2 PRN PRN Reason: Sore Throat Clonazepam (Klonopin) 1 mg PO Q12 [facility] Last Admin: 03/01/18 21:39 Dose: 1 mg Dexamethasone (Decadron Inj) 6 mg IVP Q8 [facility] Last Admin: 03/02/18 01:12 Dose: 6 mg HCTZ/Losartan Potassium (Hyzaar 12.5 Mg-50 Mg) 2 tab PO DAILY [facility] Home Med (Diclofenac Sodium [Voltaren]) 1 appl TOP Q6 PRN PRN Reason: Pain, Mild (1-3) Piperacillin Sod/Tazobactam (Sod 3.375 gm/ Sodium Chloride) 100 mls @ 100 mls/hr IVPB Q12 [facility]; Protocol Last Admin: 03/01/18 21:40 Dose: 100 mls/hr Clindamycin Phosphate (Cleocin) 600 mg in 50 mls @ 50 mls/hr IVPB Q8 [facility]; Protocol Last Admin: 11/06/18 01:18 Dose: 50 mls/hr Levothyroxine Sodium (Synthroid) 100 mcg PO DAILY@0630 [facility] Last Admin: 03/02/18 06:27 Dose: 100 mcg Mirtazapine (Remeron 15mg Odt) 15 mg PO HS [facility] Last Admin: 03/01/18 23:17 Dose: 15 mg Montelukast Sodium (Singulair) 10 mg PO HS [facility] Last Admin: 03/01/18 23:17 Dose: 10 mg Multivitamins/Minerals (Therapeutic-M Tab) 1 tab PO DAILY [facility] Ondansetron HCl (Zofran Inj) 2 mg IVP Q6 PRN PRN Reason: Nausea/Vomiting Oseltamivir Phosphate (Tamiflu Cap) 75 mg PO BID [facility]; Protocol Stop: 03/07/18 09:00 Last Admin: 03/01/18 21:37 Dose: 75 mg Pantoprazole Sodium (Protonix Ec Tab) 40 mg PO DAILY [facility] Pravastatin Sodium (Pravachol) 40 mg PO QPM [facility] - Labs Labs: 03/02/18 06:00 03/01/18 11:50 - Constitutional Appears: Other (Patient appears uncomfortable and ill) - Head Exam Head Exam: ATRAUMATIC, NORMOCEPHALIC - Eye Exam Eye Exam: EOMI, Normal appearance - ENT Exam ENT Exam: Mucous Membranes Moist Additional comments: Enlarged congested tonsils b/l - Neck Exam Neck Exam: Full ROM, Normal Inspection - Respiratory Exam Respiratory Exam: Clear to Ausculation Bilateral, NORMAL BREATHING PATTERN - Cardiovascular Exam Cardiovascular Exam: REGULAR RHYTHM - GI/Abdominal Exam GI & Abdominal Exam: Soft - Extremities Exam Extremities Exam: Normal Capillary Refill, Normal Inspection - Neurological Exam Neurological Exam: Alert, Awake, Oriented x3 - Skin Skin Exam: Dry, Intact, Normal Color, Warm Assessment and Plan - Assessment and Plan (Free Text) Assessment: 82 y/o female patient seen for tonsillitis and sepsis. Plan: Sepsis, criterias met with elevated HR, Tm and tonsillitis - Acute - Leukocytosis 22.9. - S/p IVF, Zosyna nd clinda - Normal Lactate/VBG - C/w IVF - C/w Zosyn 3.3gm Q12, day # 1 - C/w Clinda 600mg Q8H, day # 1 - F/u Ucx and Bcx - Monitor VS closely Tonsillitis/Pharyngitis - Acute - CT: Tonsillitis, no abscess - ENT consult, Dr. Mccormick, f/u recommendations - Cephacol, c/w symptomatic management - Rapid Strep Throat negative, repeat in morning - C/w Fluids and Abx - C/w Dexamethason 6mg Q8H - Advance diet as tolerated - Infectious disease consulted; F/U recommendations Positive influenza A - Continue Tamiflu 75mg PO BID for 1/5days - Encourage PO intake - Symptomatic/supportive management Congested CXR, possible fluid overload - CXR done; No abnormalities noted. - Echo done; pending report. - F/U pro-BNP Hypertension - Chronic - Controlled - C/w Home medications: Norvasc 10mg daily, HCTZ/Losartan 12.5/50mg 2tabs daily - C/w Aspirin and Statin - F/u HBA1C, Lipids, TSH Gastritis - Chronic, controlled - C/w Protonix 40mg PO daily Mood disorders - C/w Klonopin and Remeron DVT PPX - SCD for now <Lilia Patel - Last Filed: 03/02/18 16:03> Objective - Vital Signs/Intake and Output Vital Signs (last 24 hours): Temp Pulse Resp BP Pulse Ox 98.6 F 78 18 130/60 97 03/02/18 14:05 03/02/18 14:05 03/02/18 14:05 03/02/18 14:05 03/02/18 14:04 - Medications Medications: Current Medications Acetaminophen (Tylenol 325mg Tab) 650 mg PO Q6 PRN PRN Reason: Fever >100.4 F Amlodipine Besylate (Norvasc) 10 mg PO DAILY [facility] Last Admin: 03/02/18 09:48 Dose: 10 mg Aspirin (Ecotrin) 81 mg PO DAILY [facility] Last Admin: 03/02/18 13:39 Dose: 81 mg Benzocaine/Menthol (Cepacol Sore Throat) 1 trav PO Q2 PRN PRN Reason: Sore Throat Clonazepam (Klonopin) 1 mg PO Q12 [facility] Last Admin: 03/02/18 12:30 Dose: 1 mg Dexamethasone (Decadron Inj) 6 mg IVP Q8 [facility] Last Admin: 03/02/18 10:30 Dose: 6 mg HCTZ/Losartan Potassium (Hyzaar 12.5 Mg-50 Mg) 2 tab PO DAILY [facility] Last Admin: 03/02/18 09:50 Dose: 2 tab Home Med (Diclofenac Sodium [Voltaren]) 1 appl TOP Q6 PRN PRN Reason: Pain, Mild (1-3) Piperacillin Sod/Tazobactam (Sod 3.375 gm/ Sodium Chloride) 100 mls @ 100 mls/hr IVPB Q12 [facility]; Protocol Last Admin: 03/02/18 13:20 Dose: 100 mls/hr Clindamycin Phosphate (Cleocin) 600 mg in 50 mls @ 50 mls/hr IVPB Q8 [facility]; Protocol Last Admin: 03/02/18 13:46 Dose: 50 mls/hr Levothyroxine Sodium (Synthroid) 100 mcg PO DAILY@0630 [facility] Last Admin: 03/02/18 06:27 Dose: 100 mcg Mirtazapine (Remeron 15mg Odt) 15 mg PO HS [facility] Last Admin: 03/01/18 23:17 Dose: 15 mg Montelukast Sodium (Singulair) 10 mg PO HS [facility] Last Admin: 03/01/18 23:17 Dose: 10 mg Multivitamins/Minerals (Therapeutic-M Tab) 1 tab PO DAILY [facility] Last Admin: 03/02/18 09:50 Dose: 1 tab Ondansetron HCl (Zofran Inj) 2 mg IVP Q6 PRN PRN Reason: Nausea/Vomiting Oseltamivir Phosphate (Tamiflu Cap) 75 mg PO BID [facility]; Protocol Stop: 03/07/18 09:00 Last Admin: 03/02/18 09:45 Dose: 75 mg Pantoprazole Sodium (Protonix Ec Tab) 40 mg PO DAILY [facility] Last Admin: 03/02/18 09:48 Dose: 40 mg Pravastatin Sodium (Pravachol) 40 mg PO QPM [facility] - Labs Labs: 03/02/18 06:00 03/01/18 11:50 Attending/Attestation - Attestation I have personally seen and examined this patient.: Yes I have fully participated in the care of the patient.: Yes I have reviewed all pertinent clinical information, including history, physical exam and plan: Yes Notes (Text): 03/02/18 16:03 Seen examined and discussed with resident. Agree with findings and plan as above.
--- NOTE | 2018-03-02 09:43 | CARD ---
APPROVED REPORT Date of service: 03/01/2018 EKG Measurement Heart [id number] <Conclusion> Normal sinus rhythm Nonspecific T wave abnormality Prolonged QT Abnormal ECG
[2018-03-02] MEDS: Pantoprazole 40 mg EC Tab PO SCH (09:48)
[2018-03-02] MEDS: Multivitamin With Minerals Tab PO SCH (09:50)
[2018-03-02] MEDS: HCTZ/Losartan 12.5/50 Tab PO SCH (09:50)
--- NOTE | 2018-03-02 10:44 | RAD ---
HISTORY: Sepsis COMPARISON: 06/28/2013 TECHNIQUE: Chest PA and lateral FINDINGS: LINES AND TUBES: None. LUNG AND PLEURA: The lungs are well inflated and clear. No pleural effusion or pneumothorax. HEART AND MEDIASTINUM: There is mild cardiomegaly. There is asymmetric soft tissue fullness in the right suprahilar region. No aortic atherosclerotic calcifications present. SKELETAL STRUCTURES: The bony structures are within normal limits for the patient's age. VISUALIZED UPPER ABDOMEN: Normal. OTHER FINDINGS: None. IMPRESSION: No active pulmonary disease. Asymmetric soft tissue fullness in the right suprahilar region could be related to vascular prominence however mass cannot be entirely excluded. Dedicated CT scan of the thorax with intravenous contrast would be helpful for further evaluation.
--- NOTE | 2018-03-02 11:55 | CP.PCM.CON ---
History of Present Illness - History of Present Illness History of Present Illness: Infectious Disease Consultation Note- asked to see this patient at the request of hospitalist for tonsiltis and sepsis. HPI- Patient is a 82 year old female with PMH of HTN, hypothyroidism s/p thyroid surgery, CVA who is admitted for c/o fever, b/l ear pain and pain with swallowing. Patient explains her b/l ear region pain has been present for about a month or so but her sore throat and pain with swallowing is new only in past few days. She also c/o fever and chills. She denies any sick contacts. denies any recent travel but she does go to [facility] every week. She states she received her flu vaccine in january. ,she denies any nausea ,denies any vomiting, denies any chest pain, SOB, dizziness, abdominal pain or dysuria. denies any diarrhea in ed she was found to be febrile 101.7 and wbc [id number] and tested positive for flu. PMD: dr johnson PMH: HTN, hypothyroid, and CVA x2 PSH: Thyroid removed, BTL, R knee surgery Allg: NKDA Meds: As per med recs SH: Denies any alcohol/smoking or illicit drug use FH: Denies any cancers, + for DM and HTN ROS: As per HPI Review of Systems - Review of Systems Review of Systems: ROS- + fever and chills, denies any CRUZ, b/l ear and ear region pain, denies any discharge from her ears, + sore throat and pain with swallowing, no cough, denies any sob, denies any chest pain, denies any abd. pain, denies any nausea or vomiting, denies any dysurea, denies any diarrhea Past Patient History - Infectious Disease Hx of Infectious Diseases: None - Past Social History Smoking Status: Never Smoked Alcohol: None Drugs: Denies Home Situation {Lives}: Alone - CARDIAC Hx Hypercholesterolemia: Yes Hx Hypertension: Yes - PULMONARY Hx Respiratory Disorders: No - RENAL Hx Chronic Kidney Disease: No - ENDOCRINE/METABOLIC Hx Hyperthyroidism: Yes Hx Hypothyroidism: Yes (thyroidectomy) - HEMATOLOGICAL/ONCOLOGICAL Hx Blood Disorders: No - GENITOURINARY/GYNECOLOGICAL Hx Sexually Transmitted Disorders: No - PSYCHIATRIC Hx Anxiety: Yes Hx Depression: Yes - SURGICAL HISTORY Hx Musculoskeletal Surgery: Yes (right foot) Hx Thyroidectomy: Yes - ANESTHESIA Hx Anesthesia: Yes Meds Allergies/Adverse Reactions: Allergies Allergy/AdvReac Type Severity Reaction Status Date / Time No Known Allergies Allergy Verified 03/01/18 12:20 - Medications Medications: Current Medications Acetaminophen (Tylenol 325mg Tab) 650 mg PO Q6 PRN PRN Reason: Fever >100.4 F Amlodipine Besylate (Norvasc) 10 mg PO DAILY [facility] Last Admin: 03/02/18 09:48 Dose: 10 mg Aspirin (Ecotrin) 81 mg PO DAILY [facility] Benzocaine/Menthol (Cepacol Sore Throat) 1 trav PO Q2 PRN PRN Reason: Sore Throat Clonazepam (Klonopin) 1 mg PO Q12 [facility] Last Admin: 03/01/18 21:39 Dose: 1 mg Dexamethasone (Decadron Inj) 6 mg IVP Q8 [facility] Last Admin: 03/02/18 01:12 Dose: 6 mg HCTZ/Losartan Potassium (Hyzaar 12.5 Mg-50 Mg) 2 tab PO DAILY [facility] Last Admin: 03/02/18 09:50 Dose: 2 tab Home Med (Diclofenac Sodium [Voltaren]) 1 appl TOP Q6 PRN PRN Reason: Pain, Mild (1-3) Piperacillin Sod/Tazobactam (Sod 3.375 gm/ Sodium Chloride) 100 mls @ 100 mls/hr IVPB Q12 [facility]; Protocol Last Admin: 03/01/18 21:40 Dose: 100 mls/hr Clindamycin Phosphate (Cleocin) 600 mg in 50 mls @ 50 mls/hr IVPB Q8 [facility]; Protocol Last Admin: 03/02/18 01:18 Dose: 50 mls/hr Levothyroxine Sodium (Synthroid) 100 mcg PO DAILY@0630 [facility] Last Admin: 03/02/18 06:27 Dose: 100 mcg Mirtazapine (Remeron 15mg Odt) 15 mg PO HS [facility] Last Admin: 03/01/18 23:17 Dose: 15 mg Montelukast Sodium (Singulair) 10 mg PO HS [facility] Last Admin: 03/01/18 23:17 Dose: 10 mg Multivitamins/Minerals (Therapeutic-M Tab) 1 tab PO DAILY [facility] Last Admin: 03/02/18 09:50 Dose: 1 tab Ondansetron HCl (Zofran Inj) 2 mg IVP Q6 PRN PRN Reason: Nausea/Vomiting Oseltamivir Phosphate (Tamiflu Cap) 75 mg PO BID [facility]; Protocol Stop: 03/07/18 09:00 Last Admin: 03/02/18 09:45 Dose: 75 mg Pantoprazole Sodium (Protonix Ec Tab) 40 mg PO DAILY [facility] Last Admin: 03/02/18 09:48 Dose: 40 mg Pravastatin Sodium (Pravachol) 40 mg PO QPM [facility] Physical Exam - Constitutional Appears: No Acute Distress - Head Exam Head Exam: ATRAUMATIC - Eye Exam Eye Exam: EOMI, PERRL - ENT Exam ENT Exam: Normal External Ear Exam, TM's Normal Bilaterally Additional comments: b/l emalrged and erythematous tonsils but No exudate mild pain in the region surrounding her ears b/l , no erythema, no swelling - Neck Exam Neck exam: Positive for: Full Rom - Respiratory Exam Respiratory Exam: NORMAL BREATHING PATTERN Additional comments: no wheezing good breath sounds b/l - Cardiovascular Exam Cardiovascular Exam: RRR, +S1, +S2 - GI/Abdominal Exam GI & Abdominal Exam: Normal Bowel Sounds, Soft Additional comments: NT, ND - Extremities Exam Extremities exam: Positive for: normal inspection - Neurological Exam Neurological exam: Alert, Oriented x3 Results - Vital Signs Recent Vital Signs: Last Vital Signs Temp 97.9 F 03/02/18 09:11 Pulse 85 03/02/18 09:48 Resp 18 03/02/18 09:11 BP 138/70 03/02/18 09:48 Pulse Ox 97 03/02/18 09:11 - Labs Result Diagrams: 03/02/18 06:00 03/01/18 11:50 Labs: Laboratory Results - last 24 hr 03/01/18 03/01/18 03/01/18 11:50 11:50 13:46 WBC 19.2 H D RBC 4.76 Hgb 12.0 Hct 37.4 MCV 78.5 L MCH 25.2 L MCHC 32.2 L RDW 17.1 H Plt Count 277 MPV 7.7 Neut % (Auto) 88.9 H Lymph % (Auto) 5.3 L [place] % (Auto) 5.4 Eos % (Auto) 0.1 Baso % (Auto) 0.3 Neut # (Auto) 17.1 H Lymph # (Auto) 1.0 [place] # (Auto) 1.0 H Eos # (Auto) 0.0 Baso # (Auto) 0.1 Neutrophils % (Manual) 86 H Band Neutrophils % 5 H Lymphocytes % (Manual) 4 L Monocytes % (Manual) 4 Eosinophils % (Manual) 1 Platelet Estimate Normal Plt Clumps, EDTA Large Platelets Anisocytosis (manual) Slight Microcytosis (manual) Slight pO2 33 VBG pH 7.44 H VBG pCO2 45 VBG HCO3 28.5 VBG Total CO2 32.0 H VBG O2 Sat (Calc) 69.7 H VBG Base Excess 5.6 H VBG Potassium 4.2 Glucose 136 H Lactate 2.2 H FiO2 21.0 Sodium 137 135.0 Potassium 3.9 Chloride 97 L 99.0 Carbon Dioxide 29 Anion Gap 15 BUN 15 Creatinine 0.9 Est GFR ( Amer) > 60 Est GFR (Non-Af Amer) 60 Random Glucose 131 H Calcium 9.0 Total Bilirubin 0.4 AST 45 H D ALT 30 Alkaline Phosphatase 107 Total Protein 8.6 H Albumin 4.5 Globulin 4.2 H Albumin/Globulin Ratio 1.1 Triglycerides Cholesterol LDL Cholesterol Direct HDL Cholesterol Free T4 TSH 3rd Generation Venous Blood Potassium 4.2 Urine Color Urine Clarity Urine pH Ur Specific [place] Urine Protein Urine Glucose (UA) Urine Ketones Urine Blood Urine Nitrate Urine Bilirubin Urine Urobilinogen Ur Leukocyte Esterase Urine RBC (Auto) Urine Microscopic WBC Ur Squamous Epith Cells Influenza Typ A,B (EIA) Grp A Beta Strep Ag 03/01/18 03/01/18 03/01/18 17:45 17:50 19:01 WBC RBC Hgb Hct MCV MCH MCHC RDW Plt Count MPV Neut % (Auto) Lymph % (Auto) [place] % (Auto) Eos % (Auto) Baso % (Auto) Neut # (Auto) Lymph # (Auto) [place] # (Auto) Eos # (Auto) Baso # (Auto) Neutrophils % (Manual) Band Neutrophils % Lymphocytes % (Manual) Monocytes % (Manual) Eosinophils % (Manual) Platelet Estimate Plt Clumps, EDTA Large Platelets Anisocytosis (manual) Microcytosis (manual) pO2 43 VBG pH 7.42 VBG pCO2 45 VBG HCO3 27.6 VBG Total CO2 30.6 H VBG O2 Sat (Calc) 83.5 H VBG Base Excess 4.0 H VBG Potassium 3.7 Glucose 167 H Lactate 0.9 FiO2 21.0 Sodium 133.0 Potassium Chloride 100.0 Carbon Dioxide Anion Gap BUN Creatinine Est GFR ( Amer) Est GFR (Non-Af Amer) Random Glucose Calcium Total Bilirubin AST ALT Alkaline Phosphatase Total Protein Albumin Globulin Albumin/Globulin Ratio Triglycerides Cholesterol LDL Cholesterol Direct HDL Cholesterol Free T4 TSH 3rd Generation Venous Blood Potassium 3.7 Urine Color Yellow Urine Clarity Clear Urine pH 6.0 Ur Specific [place] 1.025 Urine Protein Negative Urine Glucose (UA) Neg Urine Ketones Negative Urine Blood Moderate Urine Nitrate Negative Urine Bilirubin Negative Urine Urobilinogen 0.2-1.0 Ur Leukocyte Esterase Neg Urine RBC (Auto) 2 Urine Microscopic WBC 1 Ur Squamous Epith Cells < 1 Influenza Typ A,B (EIA) Grp A Beta Strep Ag Negative 03/01/18 03/02/18 03/02/18 19:01 06:00 06:00 WBC 22.9 H RBC 4.80 Hgb 12.1 Hct 38.6 MCV 80.4 L MCH 25.3 L MCHC 31.4 L RDW 17.3 H Plt Count 264 MPV 7.8 Neut % (Auto) 93.2 H Lymph % (Auto) 5.0 L [place] % (Auto) 1.7 Eos % (Auto) 0.0 Baso % (Auto) 0.1 Neut # (Auto) 21.4 H Lymph # (Auto) 1.1 [place] # (Auto) 0.4 Eos # (Auto) 0.0 Baso # (Auto) 0.0 Neutrophils % (Manual) 92 H Band Neutrophils % Lymphocytes % (Manual) 7 L Monocytes % (Manual) 1 Eosinophils % (Manual) Platelet Estimate Normal Plt Clumps, EDTA Present Large Platelets Present Anisocytosis (manual) Slight Microcytosis (manual) pO2 VBG pH VBG pCO2 VBG HCO3 VBG Total CO2 VBG O2 Sat (Calc) VBG Base Excess VBG Potassium Glucose Lactate FiO2 Sodium Potassium Chloride Carbon Dioxide Anion Gap BUN Creatinine Est GFR ( Amer) Est GFR (Non-Af Amer) Random Glucose Calcium Total Bilirubin AST ALT Alkaline Phosphatase Total Protein Albumin Globulin Albumin/Globulin Ratio Triglycerides Cholesterol LDL Cholesterol Direct HDL Cholesterol Free T4 1.65 TSH 3rd Generation Venous Blood Potassium Urine Color Urine Clarity Urine pH Ur Specific [place] Urine Protein Urine Glucose (UA) Urine Ketones Urine Blood Urine Nitrate Urine Bilirubin Urine Urobilinogen Ur Leukocyte Esterase Urine RBC (Auto) Urine Microscopic WBC Ur Squamous Epith Cells Influenza Typ A,B (EIA) Pos for influenza a H Grp A Beta Strep Ag 03/02/18 06:00 WBC RBC Hgb Hct MCV MCH MCHC RDW Plt Count MPV Neut % (Auto) Lymph % (Auto) [place] % (Auto) Eos % (Auto) Baso % (Auto) Neut # (Auto) Lymph # (Auto) [place] # (Auto) Eos # (Auto) Baso # (Auto) Neutrophils % (Manual) Band Neutrophils % Lymphocytes % (Manual) Monocytes % (Manual) Eosinophils % (Manual) Platelet Estimate Plt Clumps, EDTA Large Platelets Anisocytosis (manual) Microcytosis (manual) pO2 VBG pH VBG pCO2 VBG HCO3 VBG Total CO2 VBG O2 Sat (Calc) VBG Base Excess VBG Potassium Glucose Lactate FiO2 Sodium Potassium Chloride Carbon Dioxide Anion Gap BUN Creatinine Est GFR ( Amer) Est GFR (Non-Af Amer) Random Glucose Calcium Total Bilirubin AST ALT Alkaline Phosphatase Total Protein Albumin Globulin Albumin/Globulin Ratio Triglycerides 77 Cholesterol 168 LDL Cholesterol Direct 90 HDL Cholesterol 45 Free T4 TSH 3rd Generation 0.15 L Venous Blood Potassium Urine Color Urine Clarity Urine pH Ur Specific [place] Urine Protein Urine Glucose (UA) Urine Ketones Urine Blood Urine Nitrate Urine Bilirubin Urine Urobilinogen Ur Leukocyte Esterase Urine RBC (Auto) Urine Microscopic WBC Ur Squamous Epith Cells Influenza Typ A,B (EIA) Grp A Beta Strep Ag Laboratory Results - last 72 hr 03/01/18 03/01/18 03/01/18 11:50 11:50 13:46 WBC 19.2 H D RBC 4.76 Hgb 12.0 Hct 37.4 MCV 78.5 L MCH 25.2 L MCHC 32.2 L RDW 17.1 H Plt Count 277 MPV 7.7 Neut % (Auto) 88.9 H Lymph % (Auto) 5.3 L [place] % (Auto) 5.4 Eos % (Auto) 0.1 Baso % (Auto) 0.3 Neut # (Auto) 17.1 H Lymph # (Auto) 1.0 [place] # (Auto) 1.0 H Eos # (Auto) 0.0 Baso # (Auto) 0.1 Neutrophils % (Manual) 86 H Band Neutrophils % 5 H Lymphocytes % (Manual) 4 L Monocytes % (Manual) 4 Eosinophils % (Manual) 1 Platelet Estimate Normal Plt Clumps, EDTA Large Platelets Anisocytosis (manual) Slight Microcytosis (manual) Slight pO2 33 VBG pH 7.44 H VBG pCO2 45 VBG HCO3 28.5 VBG Total CO2 32.0 H VBG O2 Sat (Calc) 69.7 H VBG Base Excess 5.6 H VBG Potassium 4.2 Glucose 136 H Lactate 2.2 H FiO2 21.0 Sodium 137 135.0 Potassium 3.9 Chloride 97 L 99.0 Carbon Dioxide 29 Anion Gap 15 BUN 15 Creatinine 0.9 Est GFR ( Amer) > 60 Est GFR (Non-Af Amer) 60 Random Glucose 131 H Hemoglobin A1c Calcium 9.0 Total Bilirubin 0.4 AST 45 H D ALT 30 Alkaline Phosphatase 107 NT-Pro-B Natriuret Pep Total Protein 8.6 H Albumin 4.5 Globulin 4.2 H Albumin/Globulin Ratio 1.1 Triglycerides Cholesterol LDL Cholesterol Direct HDL Cholesterol Free T4 TSH 3rd Generation Venous Blood Potassium 4.2 Urine Color Urine Clarity Urine pH Ur Specific [place] Urine Protein Urine Glucose (UA) Urine Ketones Urine Blood Urine Nitrate Urine Bilirubin Urine Urobilinogen Ur Leukocyte Esterase Urine RBC (Auto) Urine Microscopic WBC Ur Squamous Epith Cells Influenza Typ A,B (EIA) Grp A Beta Strep Ag 03/01/18 03/01/18 03/01/18 17:45 17:50 19:01 WBC RBC Hgb Hct MCV MCH MCHC RDW Plt Count MPV Neut % (Auto) Lymph % (Auto) [place] % (Auto) Eos % (Auto) Baso % (Auto) Neut # (Auto) Lymph # (Auto) [place] # (Auto) Eos # (Auto) Baso # (Auto) Neutrophils % (Manual) Band Neutrophils % Lymphocytes % (Manual) Monocytes % (Manual) Eosinophils % (Manual) Platelet Estimate Plt Clumps, EDTA Large Platelets Anisocytosis (manual) Microcytosis (manual) pO2 43 VBG pH 7.42 VBG pCO2 45 VBG HCO3 27.6 VBG Total CO2 30.6 H VBG O2 Sat (Calc) 83.5 H VBG Base Excess 4.0 H VBG Potassium 3.7 Glucose 167 H Lactate 0.9 FiO2 21.0 Sodium 133.0 Potassium Chloride 100.0 Carbon Dioxide Anion Gap BUN Creatinine Est GFR ( Amer) Est GFR (Non-Af Amer) Random Glucose Hemoglobin A1c Calcium Total Bilirubin AST ALT Alkaline Phosphatase NT-Pro-B Natriuret Pep Total Protein Albumin Globulin Albumin/Globulin Ratio Triglycerides Cholesterol LDL Cholesterol Direct HDL Cholesterol Free T4 TSH 3rd Generation Venous Blood Potassium 3.7 Urine Color Yellow Urine Clarity Clear Urine pH 6.0 Ur Specific [place] 1.025 Urine Protein Negative Urine Glucose (UA) Neg Urine Ketones Negative Urine Blood Moderate Urine Nitrate Negative Urine Bilirubin Negative Urine Urobilinogen 0.2-1.0 Ur Leukocyte Esterase Neg Urine RBC (Auto) 2 Urine Microscopic WBC 1 Ur Squamous Epith Cells < 1 Influenza Typ A,B (EIA) Grp A Beta Strep Ag Negative 03/01/18 03/02/18 03/02/18 19:01 06:00 06:00 WBC 22.9 H RBC 4.80 Hgb 12.1 Hct 38.6 MCV 80.4 L MCH 25.3 L MCHC 31.4 L RDW 17.3 H Plt Count 264 MPV 7.8 Neut % (Auto) 93.2 H Lymph % (Auto) 5.0 L [place] % (Auto) 1.7 Eos % (Auto) 0.0 Baso % (Auto) 0.1 Neut # (Auto) 21.4 H Lymph # (Auto) 1.1 [place] # (Auto) 0.4 Eos # (Auto) 0.0 Baso # (Auto) 0.0 Neutrophils % (Manual) 92 H Band Neutrophils % Lymphocytes % (Manual) 7 L Monocytes % (Manual) 1 Eosinophils % (Manual) Platelet Estimate Normal Plt Clumps, EDTA Present Large Platelets Present Anisocytosis (manual) Slight Microcytosis (manual) pO2 VBG pH VBG pCO2 VBG HCO3 VBG Total CO2 VBG O2 Sat (Calc) VBG Base Excess VBG Potassium Glucose Lactate FiO2 Sodium Potassium Chloride Carbon Dioxide Anion Gap BUN Creatinine Est GFR ( Amer) Est GFR (Non-Af Amer) Random Glucose Hemoglobin A1c 6.3 Calcium Total Bilirubin AST ALT Alkaline Phosphatase NT-Pro-B Natriuret Pep Total Protein Albumin Globulin Albumin/Globulin Ratio Triglycerides Cholesterol LDL Cholesterol Direct HDL Cholesterol Free T4 TSH 3rd Generation Venous Blood Potassium Urine Color Urine Clarity Urine pH Ur Specific [place] Urine Protein Urine Glucose (UA) Urine Ketones Urine Blood Urine Nitrate Urine Bilirubin Urine Urobilinogen Ur Leukocyte Esterase Urine RBC (Auto) Urine Microscopic WBC Ur Squamous Epith Cells Influenza Typ A,B (EIA) Pos for influenza a H Grp A Beta Strep Ag 03/02/18 03/02/18 03/02/18 06:00 06:00 06:00 WBC RBC Hgb Hct MCV MCH MCHC RDW Plt Count MPV Neut % (Auto) Lymph % (Auto) [place] % (Auto) Eos % (Auto) Baso % (Auto) Neut # (Auto) Lymph # (Auto) [place] # (Auto) Eos # (Auto) Baso # (Auto) Neutrophils % (Manual) Band Neutrophils % Lymphocytes % (Manual) Monocytes % (Manual) Eosinophils % (Manual) Platelet Estimate Plt Clumps, EDTA Large Platelets Anisocytosis (manual) Microcytosis (manual) pO2 VBG pH VBG pCO2 VBG HCO3 VBG Total CO2 VBG O2 Sat (Calc) VBG Base Excess VBG Potassium Glucose Lactate FiO2 Sodium Potassium Chloride Carbon Dioxide Anion Gap BUN Creatinine Est GFR ( Amer) Est GFR (Non-Af Amer) Random Glucose Hemoglobin A1c Calcium Total Bilirubin AST ALT Alkaline Phosphatase NT-Pro-B Natriuret Pep 1110 H Total Protein Albumin Globulin Albumin/Globulin Ratio Triglycerides 77 Cholesterol 168 LDL Cholesterol Direct 90 HDL Cholesterol 45 Free T4 1.65 TSH 3rd Generation 0.15 L Venous Blood Potassium Urine Color Urine Clarity Urine pH Ur Specific [place] Urine Protein Urine Glucose (UA) Urine Ketones Urine Blood Urine Nitrate Urine Bilirubin Urine Urobilinogen Ur Leukocyte Esterase Urine RBC (Auto) Urine Microscopic WBC Ur Squamous Epith Cells Influenza Typ A,B (EIA) Grp A Beta Strep Ag Microbiology 03/01/18 13:00 Blood Blood Culture - Preliminary NO GROWTH AFTER 24 HOURS 03/01/18 14:25 Blood-Venous Blood Culture - Preliminary NO GROWTH AFTER 24 HOURS Accession No. : [id number] Patient Name / ID : CHERYL CONNELLY / [id number] Exam Date : 03/01/2018 15:58:19 ( Approved ) Study Comment : Sex / Age : F / 82Y Creator : Chapincito Wright MD Dictator : Chapincito Wright MD Pasteurizer : Family Readiness Support Assistant : Chapincito Wright MD Approver2 : Report Date : 03/01/2018 16:36:07 My Comment : Date of service: 03/01/2018 PROCEDURE: CT NECK WITH CONTRAST HISTORY: peritonsillar abscess COMPARISON: None available. TECHNIQUE: CT of the neck with intravenous contrast. Coronal and sagittal reformats generated. Intravenous contrast dose: 80 cc of Omnipaque 300 intravenously. Radiation dose: Total exam DLP = 354.42 mGy-cm. This CT exam was performed using one or more of the following dose reduction techniques: Automated exposure control, adjustment of the mA and/or kV according to patient size, and/or use of iterative reconstruction technique. FINDINGS: NASOPHARYNX: Mild mucosal thickening noted in the nasopharynx. SUPRAHYOID NECK: Voih-gk-tubdhyei diffuse mucosal thickening noted in the oropharynx, oral cavity, parapharyngeal space and retropharyngeal space. Moderate enlargement of the palatine tonsils noted right more than left. There is no CT evidence of peritonsillar abscess formation. INFRAHYOID NECK: Unremarkable larynx, hypopharynx, and supraglottic space. Vocal cords intact. MASS: None. GLANDS: Parotid and submandibular glands unremarkable. The thyroid gland is not visualized. LYMPH NODES: Mildly enlarged level 1 and level 2 lymph nodes noted. CERVICAL SPINE: No fracture or focal lesion. VASCULAR STRUCTURES: Atherosclerotic disease and scattered calcification are noted in the carotid arteries. OTHER FINDINGS: Mucosal thickening noted in the left sphenoid sinus IMPRESSION: Moderate enlargement of the palatine tonsil without evidence of peritonsillar abscess. Diffuse nykt-id-cvwmumde mucosal thickening in the nasal and oral pharynx noted. Additional findings as described above. Accession No. : [id number] Patient Name / ID : CHERYL CONNELLY / [id number] Exam Date : 03/01/2018 16:43:34 ( Approved ) Study Comment : Sex / Age : F / 82Y Creator : Lakisha Hernandez MD Dictator : Lakisha Hernandez MD Pasteurizer : Family Readiness Support Assistant : Lakisha Hernandez MD Approver2 : Report Date : 03/02/2018 10:40:39 My Comment : HISTORY: Sepsis COMPARISON: 06/28/2013 TECHNIQUE: Chest PA and lateral FINDINGS: LINES AND TUBES: None. LUNG AND PLEURA: The lungs are well inflated and clear. No pleural effusion or pneumothorax. HEART AND MEDIASTINUM: There is mild cardiomegaly. There is asymmetric soft tissue fullness in the right suprahilar region. No aortic atherosclerotic calcifications present. SKELETAL STRUCTURES: The bony structures are within normal limits for the patient's age. VISUALIZED UPPER ABDOMEN: Normal. OTHER FINDINGS: None. IMPRESSION: No active pulmonary disease. Asymmetric soft tissue fullness in the right suprahilar region could be related to vascular prominence however mass cannot be entirely excluded. Dedicated CT scan of the thorax with intravenous contrast would be helpful for further evaluation. Assessment & Plan (1) Sepsis Status: Acute (2) Tonsillitis Status: Acute (3) Leukocytosis Status: Acute (4) Flu Status: Acute - Assessment and Plan (Free Text) Assessment: A/P- 82 year old female with hypothyroidism, HTN, admitted with fever and leukocytosis and pain with swallowing found to have tonsilitis and positive for influenza. her CXR is reported as negative but with ? right suprahilar mass and CT is advised as per radiologist's report. 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 UA- neg rapid strep- neg plan- check blood cx x 2. check throat cx. advise to continue with current antibiotic zosyn as that has broad spectrum coverage for both pathogens causing tonsiloit sna d any pulmonary pathogens. agree with clindakycin as well to cover for oral anaerobes . advise chest CT for further evaluation of the right superior hilar ? mass on CXR. advise tamiflu as well for 5 days since influenza a was positive. would also advise CT of the mastoid r/o mastoiditis sicne pt. explaisn for one month has pain in ear adn around ear region. all above d/w patient nad her family who is at her bedside. pt. seen and examined with the resident. Thank you for allowing me to take part in the care of this patient. will f/u while inpatient.
[2018-03-02] MEDS ORDERED: Piperacillin/Tazobact 3.375 gm Inj IVPB ONE (13:19)
[2018-03-02] MEDS: Piperacillin/Tazobact 3.375 GM in Sodium Chloride 0.9% 100 ML IVPB SCH ×2 (13:20→22:14)
[2018-03-02] MEDS: Pravastatin Sodium 40 MG TAB PO SCH (17:57)
--- NOTE | 2018-03-02 18:52 | CARD ---
APPROVED REPORT Date of service: 03/02/2018 EXAM: Two-dimensional and M-mode echocardiogram with Doppler and color Doppler. Other Information Quality : AverageRhythm : NSR INDICATION LV Function:SystolicDiastolic Congestion 2D DIMENSIONS IVSd1.15 (0.7-1.1cm)LVDd4.39 (3.9-5.9cm) LVOT Diameter1.96 (1.8-2.4cm)PWd1.05 (0.7-1.1cm) IVSs1.36 (0.8-1.2cm)LVDs2.89 (2.5-4.0cm) FS (%) 34.2 %PWs1.12 (0.8-1.2cm) M-Mode DIMENSIONS Left Atrium (MM)4.81 (2.5-4.0cm)IVSd1.56 (0.7-1.1cm) Aortic Root2.81 (2.2-3.7cm)LVDd4.72 (4.0-5.6cm) Aortic Cusp Exc.1.72 (1.5-2.0cm)PWd1.09 (0.7-1.1cm) IVSs1.94 cmFS (%) 55 % LVDs2.13 (2.0-3.8cm)PWs1.69 cm Aortic Valve AoV Peak Ockoiiye831.4cm/sAoV VTI35.2cmAO Peak GR.13mmHg LVOT Peak Cskuzthn33.2cm/sLVOT VTI21.55cmAO Mean GR.7mmHg BUZZ (VMAX)0.14ci8ZZQ (VTI)1.03cm2 Mitral Valve MV E Qqzuncrn90.5cm/sMV DECEL [id number] A Dmusgrfj343.0cm/s MV FNB80gnN/A ratio0.7MVA (PHT)2.98cm2 TDI Lateral E' Peak V7.17cm/sMedial E' Peak V7.50cm/sE/Lateral E'11.8 E/Medial E'11.3 Tricuspid Valve TR Peak Efidrpzp074lc/sRAP STQTTSSM71dnOqNB Peak Gr.18mmHg [id number] LEFT VENTRICLE The left ventricle is normal size. There is normal left ventricular wall thickness. The left ventricular systolic function is normal. The estimated ejection fraction is 60-65% No regional wall motion abnormalities noted.. Transmitral Doppler flow pattern is Grade I-abnormal relaxation pattern. No left ventricle thrombus noted on this study. There is no ventricular septal defect visualized. There is no left ventricular aneurysm. There is no mass noted in the left ventricle. RIGHT VENTRICLE The right ventricle is normal size. There is normal right ventricular wall thickness. The right ventricular systolic function is normal. ATRIA The left atrium is mildly dilated. The right atrium size is normal. The interatrial septum is intact with no evidence for an atrial septal defect. AORTIC VALVE The aortic valve is normal in structure. No aortic regurgitation is present. There is no aortic valvular stenosis. There is no aortic valvular vegetation. MITRAL VALVE The mitral valve is normal in structure. There is no evidence of mitral valve prolapse. There is no mitral valve stenosis. There is mild mitral valve regurgitation noted. TRICUSPID VALVE The tricuspid valve is normal in structure. There is mild tricuspid valve regurgitation noted. RVSP is calculated at 27 mm Hg. There is no tricuspid valve prolapse or vegetation. There is no tricuspid valve stenosis. PULMONIC VALVE The pulmonary valve is normal in structure. There is no pulmonic valvular regurgitation. There is no pulmonic valvular stenosis. GREAT VESSELS The aortic root is normal in size. The ascending aorta is normal in size. The pulmonary artery is normal. The IVC is normal in size and collapses >50% with inspiration. PERICARDIAL EFFUSION There is no pericardial effusion. There is no pleural effusion. <Conclusion> The estimated ejection fraction is 60-65% Transmitral Doppler flow pattern is Grade I-abnormal relaxation pattern. The left atrium is mildly dilated. There is mild mitral valve regurgitation noted. There is mild tricuspid valve regurgitation noted. RVSP is calculated at 27 mm Hg.
[2018-03-03] MEDS: Dexamethasone 4 mg/1 ml IVP SCH ×3 (00:31→17:19)
[2018-03-03] MEDS: Clindamycin 600mg/50ml D5W 600 MG/50 ML VIAL IVPB SCH ×4 (01:15→17:18)
[2018-03-03] MEDS: Levothyroxine 100 MCG TAB PO SCH (05:37)
[2018-03-03 05:44] LABS: HEMOGLOBIN 10.7 g/dL (12.0-16.0); MEAN CELL VOLUME 78.6 fl (81.0-99.0); MEAN CORPUSCULAR HEMOGLOBIN 25.6 pg (27.0-31.0); MEAN CORPUSCULAR HGB CONC 32.6 g/dL (33.0-37.0); RBC 4.16 Mil/uL (3.80-5.20); RED CELL DISTRIBUTION WIDTH 17.2 % (11.5-14.5); WHITE BLOOD COUNT 20.3 K/uL (4.8-10.8)
[2018-03-03 06:07] LABS: ALBUMIN 3.8 g/dL (3.5-5.0); ALT/SGPT 31 U/L (9-52); AST/SGOT 41 U/L (14-36); BLOOD UREA NITROGEN 22 mg/dl (7-17); CALCIUM 8.2 mg/dL (8.4-10.2); GFR NON-AFRICAN AMERICAN 53
[2018-03-03] MEDS: Piperacillin/Tazobact 3.375 GM in Sodium Chloride 0.9% 100 ML IVPB SCH ×2 (09:19→21:03)
[2018-03-03] MEDS: Multivitamin With Minerals Tab PO SCH (09:20)
[2018-03-03] MEDS: Benzocaine/Menthol (Cepacol) Lozenge PO PRN ×2 (09:20→17:19)
[2018-03-03] MEDS: HCTZ/Losartan 12.5/50 Tab PO SCH (09:21)
[2018-03-03] MEDS: Pantoprazole 40 mg EC Tab PO SCH (09:21)
--- NOTE | 2018-03-03 09:22 | CP.PCM.PN ---
Subjective - Date & Time of Evaluation Date of Evaluation: 03/03/18 Time of Evaluation: 09:22 - Subjective Subjective: ID note- Pt. seen and examined today . pt. sitting up in bed and sattes she feels slightly better than yesterday and les loulou in her throat but she states she had 2 episode of diarrhea. Objective - Vital Signs/Intake and Output Vital Signs (last 24 hours): Temp Pulse Resp BP Pulse Ox 98.2 F 83 18 114/66 95 03/03/18 05:16 03/03/18 05:16 03/03/18 05:16 03/03/18 05:16 03/03/18 05:16 - Medications Medications: Current Medications Acetaminophen (Tylenol 325mg Tab) 650 mg PO Q6 PRN PRN Reason: Fever >100.4 F Amlodipine Besylate (Norvasc) 10 mg PO DAILY [facility] Last Admin: 03/02/18 09:48 Dose: 10 mg Aspirin (Ecotrin) 81 mg PO DAILY [facility] Last Admin: 03/02/18 13:39 Dose: 81 mg Benzocaine/Menthol (Cepacol Sore Throat) 1 trav PO Q2 PRN PRN Reason: Sore Throat Clonazepam (Klonopin) 1 mg PO Q12 [facility] Last Admin: 03/02/18 22:21 Dose: 1 mg Dexamethasone (Decadron Inj) 6 mg IVP Q8 [facility] Last Admin: 03/03/18 00:31 Dose: 6 mg HCTZ/Losartan Potassium (Hyzaar 12.5 Mg-50 Mg) 2 tab PO DAILY [facility] Last Admin: 03/02/18 09:50 Dose: 2 tab Home Med (Diclofenac Sodium [Voltaren]) 1 appl TOP Q6 PRN PRN Reason: Pain, Mild (1-3) Piperacillin Sod/Tazobactam (Sod 3.375 gm/ Sodium Chloride) 100 mls @ 100 mls/hr IVPB Q12 [facility]; Protocol Last Admin: 03/02/18 22:14 Dose: 100 mls/hr Clindamycin Phosphate (Cleocin) 600 mg in 50 mls @ 50 mls/hr IVPB Q8 [facility]; Protocol Last Admin: 03/03/18 01:15 Dose: 50 mls/hr Levothyroxine Sodium (Synthroid) 100 mcg PO DAILY@0630 [facility] Last Admin: 03/03/18 05:37 Dose: 100 mcg Mirtazapine (Remeron 15mg Odt) 15 mg PO HS [facility] Last Admin: 03/03/18 00:33 Dose: 15 mg Montelukast Sodium (Singulair) 10 mg PO HS [facility] Last Admin: 03/03/18 00:33 Dose: 10 mg Multivitamins/Minerals (Therapeutic-M Tab) 1 tab PO DAILY [facility] Last Admin: 03/02/18 09:50 Dose: 1 tab Ondansetron HCl (Zofran Inj) 2 mg IVP Q6 PRN PRN Reason: Nausea/Vomiting Oseltamivir Phosphate (Tamiflu Cap) 75 mg PO BID [facility]; Protocol Stop: 03/07/18 09:00 Last Admin: 03/02/18 17:58 Dose: 75 mg Pantoprazole Sodium (Protonix Ec Tab) 40 mg PO DAILY [facility] Last Admin: 03/02/18 09:48 Dose: 40 mg Pravastatin Sodium (Pravachol) 40 mg PO QPM [facility] Last Admin: 03/02/18 17:57 Dose: 40 mg - Labs Labs: - Additional Findings Additional findings: Constitutional Appears: No Acute Distress - Head Exam Head Exam: ATRAUMATIC - Eye Exam Eye Exam: EOMI, PERRL - ENT Exam ENT Exam: Normal External Ear Exam, TM's Normal Bilaterally Additional comments: less enlarged tonsils today and erythema is less, no exudate mild pain in the region surrounding her ears b/l , no erythema, no swelling - Neck Exam Neck exam: Positive for: Full Rom - Respiratory Exam Respiratory Exam: NORMAL BREATHING PATTERN Additional comments: no wheezing good breath sounds b/l - Cardiovascular Exam Cardiovascular Exam: RRR, +S1, +S2 - GI/Abdominal Exam GI & Abdominal Exam: Normal Bowel Sounds, Soft Additional comments: NT, ND - Extremities Exam Extremities exam: Positive for: normal inspection - Neurological Exam Neurological exam: Alert, Oriented x 3 Laboratory Results - last 72 hr 03/01/18 03/01/18 03/01/18 11:50 11:50 13:46 WBC 19.2 H D RBC 4.76 Hgb 12.0 Hct 37.4 MCV 78.5 L MCH 25.2 L MCHC 32.2 L RDW 17.1 H Plt Count 277 MPV 7.7 Neut % (Auto) 88.9 H Lymph % (Auto) 5.3 L Warren % (Auto) 5.4 Eos % (Auto) 0.1 Baso % (Auto) 0.3 Neut # (Auto) 17.1 H Lymph # (Auto) 1.0 Warren # (Auto) 1.0 H Eos # (Auto) 0.0 Baso # (Auto) 0.1 Neutrophils % (Manual) 86 H Band Neutrophils % 5 H Lymphocytes % (Manual) 4 L Monocytes % (Manual) 4 Eosinophils % (Manual) 1 Platelet Estimate Normal Plt Clumps, EDTA Large Platelets Anisocytosis (manual) Slight Microcytosis (manual) Slight pO2 33 VBG pH 7.44 H VBG pCO2 45 VBG HCO3 28.5 VBG Total CO2 32.0 H VBG O2 Sat (Calc) 69.7 H VBG Base Excess 5.6 H VBG Potassium 4.2 Glucose 136 H Lactate 2.2 H FiO2 21.0 Sodium 137 135.0 Potassium 3.9 Chloride 97 L 99.0 Carbon Dioxide 29 Anion Gap 15 BUN 15 Creatinine 0.9 Est GFR ( Amer) > 60 Est GFR (Non-Af Amer) 60 Random Glucose 131 H Hemoglobin A1c Calcium 9.0 Total Bilirubin 0.4 AST 45 H D ALT 30 Alkaline Phosphatase 107 NT-Pro-B Natriuret Pep Total Protein 8.6 H Albumin 4.5 Globulin 4.2 H Albumin/Globulin Ratio 1.1 Triglycerides Cholesterol LDL Cholesterol Direct HDL Cholesterol Free T4 TSH 3rd Generation Venous Blood Potassium 4.2 Urine Color Urine Clarity Urine pH Ur Specific [place] Urine Protein Urine Glucose (UA) Urine Ketones Urine Blood Urine Nitrate Urine Bilirubin Urine Urobilinogen Ur Leukocyte Esterase Urine RBC (Auto) Urine Microscopic WBC Ur Squamous Epith Cells Influenza Typ A,B (EIA) Grp A Beta Strep Ag 03/01/18 03/01/18 03/01/18 17:45 17:50 19:01 WBC RBC Hgb Hct MCV MCH MCHC RDW Plt Count MPV Neut % (Auto) Lymph % (Auto) [place] % (Auto) Eos % (Auto) Baso % (Auto) Neut # (Auto) Lymph # (Auto) [place] # (Auto) Eos # (Auto) Baso # (Auto) Neutrophils % (Manual) Band Neutrophils % Lymphocytes % (Manual) Monocytes % (Manual) Eosinophils % (Manual) Platelet Estimate Plt Clumps, EDTA Large Platelets Anisocytosis (manual) Microcytosis (manual) pO2 43 VBG pH 7.42 VBG pCO2 45 VBG HCO3 27.6 VBG Total CO2 30.6 H VBG O2 Sat (Calc) 83.5 H VBG Base Excess 4.0 H VBG Potassium 3.7 Glucose 167 H Lactate 0.9 FiO2 21.0 Sodium 133.0 Potassium Chloride 100.0 Carbon Dioxide Anion Gap BUN Creatinine Est GFR ( Amer) Est GFR (Non-Af Amer) Random Glucose Hemoglobin A1c Calcium Total Bilirubin AST ALT Alkaline Phosphatase NT-Pro-B Natriuret Pep Total Protein Albumin Globulin Albumin/Globulin Ratio Triglycerides Cholesterol LDL Cholesterol Direct HDL Cholesterol Free T4 TSH 3rd Generation Venous Blood Potassium 3.7 Urine Color Yellow Urine Clarity Clear Urine pH 6.0 Ur Specific [place] 1.025 Urine Protein Negative Urine Glucose (UA) Neg Urine Ketones Negative Urine Blood Moderate Urine Nitrate Negative Urine Bilirubin Negative Urine Urobilinogen 0.2-1.0 Ur Leukocyte Esterase Neg Urine RBC (Auto) 2 Urine Microscopic WBC 1 Ur Squamous Epith Cells < 1 Influenza Typ A,B (EIA) Grp A Beta Strep Ag Negative 03/01/18 03/02/18 03/02/18 19:01 06:00 06:00 WBC 22.9 H RBC 4.80 Hgb 12.1 Hct 38.6 MCV 80.4 L MCH 25.3 L MCHC 31.4 L RDW 17.3 H Plt Count 264 MPV 7.8 Neut % (Auto) 93.2 H Lymph % (Auto) 5.0 L [place] % (Auto) 1.7 Eos % (Auto) 0.0 Baso % (Auto) 0.1 Neut # (Auto) 21.4 H Lymph # (Auto) 1.1 Warren # (Auto) 0.4 Eos # (Auto) 0.0 Baso # (Auto) 0.0 Neutrophils % (Manual) 92 H Band Neutrophils % Lymphocytes % (Manual) 7 L Monocytes % (Manual) 1 Eosinophils % (Manual) Platelet Estimate Normal Plt Clumps, EDTA Present Large Platelets Present Anisocytosis (manual) Slight Microcytosis (manual) pO2 VBG pH VBG pCO2 VBG HCO3 VBG Total CO2 VBG O2 Sat (Calc) VBG Base Excess VBG Potassium Glucose Lactate FiO2 Sodium Potassium Chloride Carbon Dioxide Anion Gap BUN Creatinine Est GFR ( Amer) Est GFR (Non-Af Amer) Random Glucose Hemoglobin A1c 6.3 Calcium Total Bilirubin AST ALT Alkaline Phosphatase NT-Pro-B Natriuret Pep Total Protein Albumin Globulin Albumin/Globulin Ratio Triglycerides Cholesterol LDL Cholesterol Direct HDL Cholesterol Free T4 TSH 3rd Generation Venous Blood Potassium Urine Color Urine Clarity Urine pH Ur Specific [place] Urine Protein Urine Glucose (UA) Urine Ketones Urine Blood Urine Nitrate Urine Bilirubin Urine Urobilinogen Ur Leukocyte Esterase Urine RBC (Auto) Urine Microscopic WBC Ur Squamous Epith Cells Influenza Typ A,B (EIA) Pos for influenza a H Grp A Beta Strep Ag 03/02/18 03/02/18 03/02/18 06:00 06:00 06:00 WBC RBC Hgb Hct MCV MCH MCHC RDW Plt Count MPV Neut % (Auto) Lymph % (Auto) [place] % (Auto) Eos % (Auto) Baso % (Auto) Neut # (Auto) Lymph # (Auto) [place] # (Auto) Eos # (Auto) Baso # (Auto) Neutrophils % (Manual) Band Neutrophils % Lymphocytes % (Manual) Monocytes % (Manual) Eosinophils % (Manual) Platelet Estimate Plt Clumps, EDTA Large Platelets Anisocytosis (manual) Microcytosis (manual) pO2 VBG pH VBG pCO2 VBG HCO3 VBG Total CO2 VBG O2 Sat (Calc) VBG Base Excess VBG Potassium Glucose Lactate FiO2 Sodium Potassium Chloride Carbon Dioxide Anion Gap BUN Creatinine Est GFR ( Amer) Est GFR (Non-Af Amer) Random Glucose Hemoglobin A1c Calcium Total Bilirubin AST ALT Alkaline Phosphatase NT-Pro-B Natriuret Pep 1110 H Total Protein Albumin Globulin Albumin/Globulin Ratio Triglycerides 77 Cholesterol 168 LDL Cholesterol Direct 90 HDL Cholesterol 45 Free T4 1.65 TSH 3rd Generation 0.15 L Venous Blood Potassium Urine Color Urine Clarity Urine pH Ur Specific [place] Urine Protein Urine Glucose (UA) Urine Ketones Urine Blood Urine Nitrate Urine Bilirubin Urine Urobilinogen Ur Leukocyte Esterase Urine RBC (Auto) Urine Microscopic WBC Ur Squamous Epith Cells Influenza Typ A,B (EIA) Grp A Beta Strep Ag 03/03/18 03/03/18 04:52 04:52 WBC 20.3 H RBC 4.16 Hgb 10.7 L Hct 32.7 L MCV 78.6 L MCH 25.6 L MCHC 32.6 L RDW 17.2 H Plt Count 288 MPV Neut % (Auto) Lymph % (Auto) [place] % (Auto) Eos % (Auto) Baso % (Auto) Neut # (Auto) Lymph # (Auto) [place] # (Auto) Eos # (Auto) Baso # (Auto) Neutrophils % (Manual) Band Neutrophils % Lymphocytes % (Manual) Monocytes % (Manual) Eosinophils % (Manual) Platelet Estimate Plt Clumps, EDTA Large Platelets Anisocytosis (manual) Microcytosis (manual) pO2 VBG pH VBG pCO2 VBG HCO3 VBG Total CO2 VBG O2 Sat (Calc) VBG Base Excess VBG Potassium Glucose Lactate FiO2 Sodium 135 Potassium 4.2 Chloride 97 L Carbon Dioxide 30 Anion Gap 12 BUN 22 H Creatinine 1.0 Est GFR ( Amer) > 60 Est GFR (Non-Af Amer) 53 Random Glucose 149 H Hemoglobin A1c Calcium 8.2 L Total Bilirubin 0.2 AST 41 H ALT 31 Alkaline Phosphatase 83 NT-Pro-B Natriuret Pep Total Protein 7.8 Albumin 3.8 Globulin 4.0 H Albumin/Globulin Ratio 1.0 Triglycerides Cholesterol LDL Cholesterol Direct HDL Cholesterol Free T4 TSH 3rd Generation Venous Blood Potassium Urine Color Urine Clarity Urine pH Ur Specific [place] Urine Protein Urine Glucose (UA) Urine Ketones Urine Blood Urine Nitrate Urine Bilirubin Urine Urobilinogen Ur Leukocyte Esterase Urine RBC (Auto) Urine Microscopic WBC Ur Squamous Epith Cells Influenza Typ A,B (EIA) Grp A Beta Strep Ag Microbiology 03/01/18 14:25 Blood-Venous Blood Culture - Preliminary NO GROWTH AFTER 48 HOURS 03/01/18 17:45 Urine,Clean Catch Urine Culture - Final No Growth (<1,000 CFU/ML) 03/01/18 13:00 Blood Blood Culture - Preliminary NO GROWTH AFTER 24 HOURS Assessment and Plan (1) Sepsis Status: Acute (2) Tonsillitis Status: Acute (3) Leukocytosis Status: Acute (4) Flu Status: Acute - Assessment and Plan (Free Text) Assessment: A/P- 82 year old female with hypothyroidism, HTN, admitted with fever and leukocytosis and pain with swallowing found to have tonsilitis and positive for influenza. her CXR is reported as negative but with ? right suprahilar mass and CT is advised as per radiologist's report. UA- neg rapid strep- neg positive influenza afebrile today still has high wbc but could be partially sec to steroids as well. blood cx- neg x 2 urine cx- neg plan- check stool C.Diff.continue with IV clindamycin and zosyn day #2. [address] chest [address] for further evaluation of the right superior hilar ? mass on CXR continue with tamiflu as well for 5 days since influenza a was positive. day #2. would also advise CT of the mastoid r/o mastoiditis sicne pt. explaisn for one month has pain in ear adn around ear region. monitor wbc in am, taper steroids advised.
--- NOTE | 2018-03-03 10:01 | CP.PCM.PN ---
<Boyd Novoa - Last Filed: 03/03/18 14:27> Subjective - Date & Time of Evaluation Date of Evaluation: 03/03/18 Time of Evaluation: 09:54 - Subjective Subjective: 82 y/o female patient seen and evaluated for tonsillitis and sepsis. Patient states that she still having pain in her throat. She states that her she is having cough since yesterday, productive. She denies any nausea or vomiting since she was last seen, She denies having fever or chills since she was last seen yesterday. She denies any chest pain, dizziness, abdominal pain or dysuria. She states that she has some SOB. Patient states that she is taking liquids by mouth as she can't tolerate eating due to her sore throat. Objective - Vital Signs/Intake and Output Vital Signs (last 24 hours): Temp Pulse Resp BP Pulse Ox 98.2 F 75 18 136/64 95 03/03/18 05:16 03/03/18 09:21 03/03/18 05:16 03/03/18 09:21 03/03/18 05:16 - Medications Medications: Current Medications Acetaminophen (Tylenol 325mg Tab) 650 mg PO Q6 PRN PRN Reason: Fever >100.4 F Amlodipine Besylate (Norvasc) 10 mg PO DAILY [facility] Last Admin: 03/03/18 09:21 Dose: 10 mg Aspirin (Ecotrin) 81 mg PO DAILY [facility] Last Admin: 03/03/18 09:21 Dose: 81 mg Benzocaine/Menthol (Cepacol Sore Throat) 1 trav PO Q2 PRN PRN Reason: Sore Throat Last Admin: 03/03/18 09:20 Dose: 1 trav Clonazepam (Klonopin) 1 mg PO Q12 [facility] Last Admin: 03/03/18 09:25 Dose: 1 mg Dexamethasone (Decadron Inj) 6 mg IVP Q8 [facility] Last Admin: 03/03/18 09:20 Dose: 6 mg HCTZ/Losartan Potassium (Hyzaar 12.5 Mg-50 Mg) 2 tab PO DAILY [facility] Last Admin: 03/03/18 09:21 Dose: 2 tab Home Med (Diclofenac Sodium [Voltaren]) 1 appl TOP Q6 PRN PRN Reason: Pain, Mild (1-3) Piperacillin Sod/Tazobactam (Sod 3.375 gm/ Sodium Chloride) 100 mls @ 100 mls/hr IVPB Q12 [facility]; Protocol Last Admin: 03/03/18 09:19 Dose: 100 mls/hr Clindamycin Phosphate (Cleocin) 600 mg in 50 mls @ 50 mls/hr IVPB Q8 [facility]; Protocol Last Admin: 03/03/18 09:19 Dose: 50 mls/hr Levothyroxine Sodium (Synthroid) 100 mcg PO DAILY@0630 [facility] Last Admin: 03/03/18 05:37 Dose: 100 mcg Mirtazapine (Remeron 15mg Odt) 15 mg PO HS [facility] Last Admin: 03/03/18 00:33 Dose: 15 mg Montelukast Sodium (Singulair) 10 mg PO [facility] Last Admin: 03/03/18 00:33 Dose: 10 mg Multivitamins/Minerals (Therapeutic-M Tab) 1 tab PO DAILY [facility] Last Admin: 03/03/18 09:20 Dose: 1 tab Ondansetron HCl (Zofran Inj) 2 mg IVP Q6 PRN PRN Reason: Nausea/Vomiting Oseltamivir Phosphate (Tamiflu Cap) 75 mg PO BID [facility]; Protocol Stop: 03/07/18 09:00 Last Admin: 03/03/18 09:21 Dose: 75 mg Pantoprazole Sodium (Protonix Ec Tab) 40 mg PO DAILY [facility] Last Admin: 03/03/18 09:21 Dose: 40 mg Pravastatin Sodium (Pravachol) 40 mg PO QPM [facility] Last Admin: 03/02/18 17:57 Dose: 40 mg - Labs Labs: 03/03/18 04:52 03/03/18 04:52 - Constitutional Appears: No Acute Distress - Head Exam Head Exam: ATRAUMATIC, NORMOCEPHALIC - Eye Exam Eye Exam: EOMI, Normal appearance, PERRL - ENT Exam ENT Exam: Mucous Membranes Moist Additional comments: Tonsils are moderately enlarged and congested (less than yesterday) - Neck Exam Neck Exam: Full ROM, Tenderness (Tender Right submandibular area) - Respiratory Exam Respiratory Exam: Clear to Ausculation Bilateral, NORMAL BREATHING PATTERN - Cardiovascular Exam Cardiovascular Exam: REGULAR RHYTHM - GI/Abdominal Exam GI & Abdominal Exam: Soft, Normal Bowel Sounds - Neurological Exam Neurological Exam: Alert, Awake, Oriented x3 Neuro motor strength exam: Left Upper Extremity: 5, Right Upper Extremity: 5, Left Lower Extremity: 5, Right Lower Extremity: 5 - Psychiatric Exam Psychiatric exam: Normal Affect, Normal Mood - Skin Skin Exam: Dry, Intact, Normal Color, Warm Assessment and Plan - Assessment and Plan (Free Text) Assessment: 82 y/o female patient seen for tonsillitis and sepsis. Plan: Sepsis, criterias met with elevated HR, Tm and tonsillitis - Acute - Leukocytosis 20.3. - S/P IVF, Zosyna nd clinda - Normal Lactate/VBG - C/w IVF - C/w Zosyn 3.3gm Q12, day # 2 - C/w Clinda 600mg Q8H, day # 2 - F/u Ucx and Bcx; No growth after 24 hours (preliminary) - Monitor VS closely Tonsillitis/Pharyngitis - Acute - CT: Tonsillitis, no abscess - ENT consult, Dr. Mccormick, f/u recommendations - Cephacol, c/w symptomatic management - Rapid Strep Throat negative, repeat in morning - C/w Fluids and Abx - C/w Dexamethason 6mg Q8H - Advance diet as tolerated - Infectious disease consulted; recommendations appreciated - CT of the mastoid to r/o mastoiditis ordered. Positive influenza A - Continue Tamiflu 75mg PO BID for 2/5days - Encourage PO intake - Symptomatic/supportive management Congested CXR, possible fluid overload - CXR done; No abnormalities noted. CT chest recommended for further evaluation of the right superior hilar ? mass on CXR. - CT chest w/o contrast ordered. - Echo done; pending report. - F/U pro-BNP Hypertension - Chronic - Controlled - C/w Home medications: Norvasc 10mg daily, HCTZ/Losartan 12.5/50mg 2tabs daily - C/w Aspirin and Statin - F/u HBA1C, Lipids, TSH Gastritis - Chronic, controlled - C/w Protonix 40mg PO daily Mood disorders - C/w Klonopin and Remeron DVT PPX - SCD for now <Lilia Patel - Last Filed: 03/03/18 16:06> Objective - Vital Signs/Intake and Output Vital Signs (last 24 hours): Temp Pulse Resp BP Pulse Ox 98.2 F 76 18 159/88 H 98 03/03/18 13:00 03/03/18 13:00 03/03/18 13:00 03/03/18 13:00 03/03/18 13:00 - Medications Medications: Current Medications Acetaminophen (Tylenol 325mg Tab) 650 mg PO Q6 PRN PRN Reason: Fever >100.4 F Amlodipine Besylate (Norvasc) 10 mg PO DAILY [facility] Last Admin: 03/03/18 09:21 Dose: 10 mg Aspirin (Ecotrin) 81 mg PO DAILY [facility] Last Admin: 03/03/18 09:21 Dose: 81 mg Benzocaine/Menthol (Cepacol Sore Throat) 1 trav PO Q2 PRN PRN Reason: Sore Throat Last Admin: 03/03/18 09:20 Dose: 1 trav Clonazepam (Klonopin) 1 mg PO Q12 [facility] Last Admin: 03/03/18 09:25 Dose: 1 mg Dexamethasone (Decadron Inj) 6 mg IVP Q8 [facility] Last Admin: 03/03/18 09:20 Dose: 6 mg HCTZ/Losartan Potassium (Hyzaar 12.5 Mg-50 Mg) 2 tab PO DAILY [facility] Last Admin: 03/03/18 09:21 Dose: 2 tab Home Med (Diclofenac Sodium [Voltaren]) 1 appl TOP Q6 PRN PRN Reason: Pain, Mild (1-3) Piperacillin Sod/Tazobactam (Sod 3.375 gm/ Sodium Chloride) 100 mls @ 100 mls/hr IVPB Q12 [facility]; Protocol Last Admin: 03/03/18 09:19 Dose: 100 mls/hr Clindamycin Phosphate (Cleocin) 600 mg in 50 mls @ 50 mls/hr IVPB Q8 [facility]; Protocol Levothyroxine Sodium (Synthroid) 100 mcg PO DAILY@0630 [facility] Last Admin: 03/03/18 05:37 Dose: 100 mcg Mirtazapine (Remeron 15mg Odt) 15 mg PO HS [facility] Last Admin: 03/03/18 00:33 Dose: 15 mg Montelukast Sodium (Singulair) 10 mg PO HS [facility] Last Admin: 03/03/18 00:33 Dose: 10 mg Multivitamins/Minerals (Therapeutic-M Tab) 1 tab PO DAILY [facility] Last Admin: 03/03/18 09:20 Dose: 1 tab Ondansetron HCl (Zofran Inj) 2 mg IVP Q6 PRN PRN Reason: Nausea/Vomiting Oseltamivir Phosphate (Tamiflu Cap) 75 mg PO BID [facility]; Protocol Stop: 03/07/18 09:00 Last Admin: 03/03/18 09:21 Dose: 75 mg Pantoprazole Sodium (Protonix Ec Tab) 40 mg PO DAILY [facility] Last Admin: 03/03/18 09:21 Dose: 40 mg Pravastatin Sodium (Pravachol) 40 mg PO QPM [facility] Last Admin: 03/02/18 17:57 Dose: 40 mg - Labs Labs: 03/03/18 04:52 03/03/18 04:52 Attending/Attestation - Attestation I have personally seen and examined this patient.: Yes I have fully participated in the care of the patient.: Yes I have reviewed all pertinent clinical information, including history, physical exam and plan: Yes Notes (Text): 03/03/18 16:06 Seen examined and discussed with resident. Agree with findings and plan as above.
[2018-03-03] MEDS: Pravastatin Sodium 40 MG TAB PO SCH (17:19)
[2018-03-04] MEDS: Dexamethasone 4 mg/1 ml IVP SCH ×3 (00:47→16:53)
[2018-03-04] MEDS: Clindamycin 600mg/50ml D5W 600 MG/50 ML VIAL IVPB SCH ×3 (00:47→16:53)
[2018-03-04 05:50] LABS: BASO % 0.1 % (0.0-2.0); HEMOGLOBIN 10.5 g/dL (12.0-16.0); LYMPH # 0.8 K/uL (1.0-4.3); LYMPH % 5.5 % (20.0-40.0); MEAN CELL VOLUME 78.8 fl (81.0-99.0); MEAN CORPUSCULAR HEMOGLOBIN 25.2 pg (27.0-31.0); MEAN PLATELET VOLUME 7.8 fl (7.2-11.7); MONO # 0.5 K/uL (0.0-0.8); MONO % 3.6 % (0.0-10.0); NEUT # 12.6 K/uL (1.8-7.0); NEUT % 90.8 % (50.0-75.0); NRBC % 0.1 % (0.0-0.0); PLATELET COUNT 297 K/uL (130-400); RBC 4.18 Mil/uL (3.80-5.20); RED CELL DISTRIBUTION WIDTH 17.1 % (11.5-14.5); WHITE BLOOD COUNT 13.9 K/uL (4.8-10.8)
[2018-03-04 06:09] LABS: ALBUMIN 3.7 g/dL (3.5-5.0); ALT/SGPT 26 U/L (9-52); AST/SGOT 32 U/L (14-36); BLOOD UREA NITROGEN 23 mg/dl (7-17); CALCIUM 8.4 mg/dL (8.4-10.2); GFR NON-AFRICAN AMERICAN 60
[2018-03-04] MEDS: Levothyroxine 100 MCG TAB PO SCH (06:27)
[2018-03-04] MEDS: HCTZ/Losartan 12.5/50 Tab PO SCH (08:23)
[2018-03-04] MEDS: Multivitamin With Minerals Tab PO SCH (08:24)
[2018-03-04] MEDS: Pantoprazole 40 mg EC Tab PO SCH (08:24)
[2018-03-04] MEDS: Piperacillin/Tazobact 3.375 GM in Sodium Chloride 0.9% 100 ML IVPB SCH ×2 (08:25→22:24)
--- NOTE | 2018-03-04 10:28 | CP.PCM.PN ---
Subjective - Date & Time of Evaluation Date of Evaluation: 03/04/18 Time of Evaluation: 10:22 - Subjective Subjective: 82 y/o female patient seen and evaluated for tonsillitis and sepsis. Patient states that her throat improved a lot and it's mild now with swallowing. She states that her she is still having productive cough. Patient states that she is having pain in behind and below her ear bilaterally. She denies any nausea or vomiting since she was last seen, Patient states that she had 2 episodes of diarrhea yesterday. She denies having fever or chills since she was last seen yesterday. She denies any chest pain, dizziness, abdominal pain or dysuria. She states that she has some SOB. Objective - Vital Signs/Intake and Output Vital Signs (last 24 hours): Temp Pulse Resp BP Pulse Ox 97.2 F L 82 18 148/74 93 L 03/04/18 08:00 03/04/18 08:00 03/04/18 08:00 03/04/18 08:00 03/04/18 08:00 - Medications Medications: Current Medications Acetaminophen (Tylenol 325mg Tab) 650 mg PO Q6 PRN PRN Reason: Fever >100.4 F Amlodipine Besylate (Norvasc) 10 mg PO DAILY [facility] Last Admin: 03/04/18 08:24 Dose: 10 mg Aspirin (Ecotrin) 81 mg PO DAILY [facility] Last Admin: 03/04/18 08:24 Dose: 81 mg Benzocaine/Menthol (Cepacol Sore Throat) 1 trav PO Q2 PRN PRN Reason: Sore Throat Last Admin: 03/03/18 17:19 Dose: 1 trav Clonazepam (Klonopin) 1 mg PO Q12 [facility] Last Admin: 03/04/18 08:24 Dose: 1 mg Dexamethasone (Decadron Inj) 6 mg IVP Q8 [facility] Last Admin: 03/04/18 08:26 Dose: 6 mg HCTZ/Losartan Potassium (Hyzaar 12.5 Mg-50 Mg) 2 tab PO DAILY [facility] Last Admin: 03/04/18 08:23 Dose: 2 tab Home Med (Diclofenac Sodium [Voltaren]) 1 appl TOP Q6 PRN PRN Reason: Pain, Mild (1-3) Piperacillin Sod/Tazobactam (Sod 3.375 gm/ Sodium Chloride) 100 mls @ 100 mls/hr IVPB Q12 [facility]; Protocol Last Admin: 03/04/18 08:25 Dose: 100 mls/hr Clindamycin Phosphate (Cleocin) 600 mg in 50 mls @ 50 mls/hr IVPB Q8 [facility]; Protocol Last Admin: 03/04/18 08:25 Dose: 50 mls/hr Levothyroxine Sodium (Synthroid) 100 mcg PO DAILY@0630 [facility] Last Admin: 03/04/18 06:27 Dose: 100 mcg Mirtazapine (Remeron 15mg Odt) 15 mg PO HS [facility] Last Admin: 03/04/18 00:35 Dose: 15 mg Montelukast Sodium (Singulair) 10 mg PO HS [facility] Last Admin: 03/04/18 00:36 Dose: 10 mg Multivitamins/Minerals (Therapeutic-M Tab) 1 tab PO DAILY [facility] Last Admin: 03/04/18 08:24 Dose: 1 tab Ondansetron HCl (Zofran Inj) 2 mg IVP Q6 PRN PRN Reason: Nausea/Vomiting Oseltamivir Phosphate (Tamiflu Cap) 75 mg PO BID [facility]; Protocol Stop: 03/07/18 09:00 Last Admin: 03/04/18 08:23 Dose: 75 mg Pantoprazole Sodium (Protonix Ec Tab) 40 mg PO DAILY [facility] Last Admin: 03/04/18 08:24 Dose: 40 mg Pravastatin Sodium (Pravachol) 40 mg PO QPM [facility] Last Admin: 03/03/18 17:19 Dose: 40 mg - Labs Labs: 03/04/18 05:10 03/04/18 05:10 - Constitutional Appears: Well, Non-toxic, No Acute Distress - Head Exam Head Exam: ATRAUMATIC, NORMAL INSPECTION, NORMOCEPHALIC - Eye Exam Eye Exam: EOMI, Normal appearance, PERRL Pupil Exam: PERRL - ENT Exam ENT Exam: Mucous Membranes Moist - Neck Exam Additional comments: Tonsils mildly enlarged, less congested than yesterday. Pain on palpation of the mastoid process b/l and also at the mandibular rami b/l infront of the ear. - Respiratory Exam Respiratory Exam: Clear to Ausculation Bilateral, NORMAL BREATHING PATTERN - Cardiovascular Exam Cardiovascular Exam: REGULAR RHYTHM - GI/Abdominal Exam GI & Abdominal Exam: Soft, Normal Bowel Sounds - Extremities Exam Extremities Exam: Normal Capillary Refill, Normal Inspection - Back Exam Back Exam: NORMAL INSPECTION - Neurological Exam Neurological Exam: Alert, Awake, Oriented x3 Neuro motor strength exam: Left Upper Extremity: 5, Right Upper Extremity: 5, Left Lower Extremity: 5, Right Lower Extremity: 5 - Psychiatric Exam Psychiatric exam: Normal Affect, Normal Mood - Skin Skin Exam: Dry, Intact, Normal Color, Warm Assessment and Plan - Assessment and Plan (Free Text) Assessment: 82 y/o female patient seen for tonsillitis and sepsis. Plan: Sepsis, criterias met with elevated HR, Tm and tonsillitis - Acute - Leukocytosis 13.9. - S/P IVF, Zosyna nd clinda - Normal Lactate/VBG - C/w IVF - C/w Zosyn 3.3gm Q12, day # 3 - C/w Clinda 600mg Q8H, day # 3 - F/u Ucx and Bcx; No growth after 24 hours (preliminary) - Monitor VS closely Tonsillitis/Pharyngitis - Acute - CT: Tonsillitis, no abscess - ENT consult, Dr. Mccormick, f/u recommendations - Cephacol, c/w symptomatic management - Rapid Strep Throat negative, repeat in morning - Throat Cx: negative for beta strep group A. - C/w Fluids and Abx - C/w Dexamethason 6mg Q8H - Advance diet as tolerated - Infectious disease consulted; recommendations appreciated - CT of the mastoid; Follow up. - Ordered C. Diff serology. Positive influenza A - Continue Tamiflu 75mg PO BID for 3/5days - Encourage PO intake - Symptomatic/supportive management Congested CXR, possible fluid overload - CXR done; No abnormalities noted. CT chest recommended for further evaluation of the right superior hilar ? mass on CXR. 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 - Echo done; pending report. - F/U pro-BNP Hypertension - Chronic - Controlled - C/w Home medications: Norvasc 10mg daily, HCTZ/Losartan 12.5/50mg 2tabs daily - C/w Aspirin and Statin - F/u HBA1C, Lipids, TSH Gastritis - Chronic, controlled - C/w Protonix 40mg PO daily Mood disorders - C/w Klonopin and Remeron DVT PPX - SCD for now
[2018-03-04 10:51] LABS: LYMPHOCYTE 7 % (20-50); MONOCYTE 4 % (0-10); NEUTROPHIL 89 % (42-75); TOTAL CELLS COUNTED 100
[2018-03-04 10:52] LABS: PLATELET ESTIMATE NORMAL (NORMAL)
[2018-03-04 10:53] LABS: HYPOCHROMIC SLIGHT
--- NOTE | 2018-03-04 13:34 | CT ---
Date of service: 03/04/2018 PROCEDURE: CT Chest without contrast HISTORY: Right superior hilar mass on CXR COMPARISON: None available. TECHNIQUE: Contiguous axial images were obtained through the chest without intravenous contrast enhancement. Sagittal and coronal reconstructions were performed. Radiation dose (DLP): 603.63 mGy-cm. This CT exam was performed using one or more of the following dose reduction techniques: Automated exposure control, adjustment of the mA and/or kV according to patient size, and/or use of iterative reconstruction technique. FINDINGS: LUNGS: Patchy heterogeneous ground-glass opacity seen diffusely. Uncertain significance. Rule out infectious or inflammatory etiology. Not suspicious for neoplasm. No pulmonary mass. No consolidation. MEDIASTINUM: No evidence of thoracic aortic aneurysm. There is atherosclerotic calcification of the thoracic aorta. Normal size heart. Incidental note is made of a distended azygos vein corresponding to the suprahilar mass seen on chest radiograph of 03/01/2018. 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 This is confirmed on abdominal/pelvic CT examination of 02/11/2015. This is a developmental variant. Main pulmonary artery unremarkable. No vascular congestion. No significant lymphadenopathy. Small calcified lymph nodes are seen in the right hilum and in the right paratracheal and subcarinal region. Likely old granulomatous disease. PLEURA: No pleural fluid. No pneumothorax. BONES: No fracture. No destructive lesion. UPPER ABDOMEN: Numerous punctate splenic calcifications consistent with calcified old granulomata. Nodular calcification in the region of the gastrohepatic ligament unchanged from CT of 02/04/2008, likely old granulomatous disease. OTHER FINDINGS: None. 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 This results in the appearance of a right suprahilar mass on plain chest radiograph. No probable clinical significance. No other acute abnormality.
[2018-03-04] MEDS: Pravastatin Sodium 40 MG TAB PO SCH (17:00)
--- NOTE | 2018-03-04 17:33 | CT ---
Date of service: 03/04/2018 PROCEDURE: CT OF THE TEMPORAL BONES WITHOUT CONTRAST HISTORY: R/O mastoiditis COMPARISON: None available. TECHNIQUE: High resolution axial images of the temporal bones were obtained. Non targeted coronal and sagittal reformats were generated. Radiation dose: Total exam DLP = 558.52 mGy-cm. This CT exam was performed using one or more of the following dose reduction techniques: Automated exposure control, adjustment of the mA and/or kV according to patient size, and/or use of iterative reconstruction technique. FINDINGS: High-resolution CT imaging through the temporal bones was performed for evaluation of the mastoid air cell complexes. Targeted imaging was not performed with standard coronal and sagittal reformatted dataset provided instead. Lateral mastoid air cell complex are well developed and aerated without opacification or destruction throughout. The petrous apices appear normal bilaterally. The middle ear cavities are well developed and aerated with grossly normal appearing ossicular change. The oval and round window niches are intact. Inner ear anatomy appears within normal limits bilaterally with vascular channels grossly nonfocal as imaged. Internal auditory canals are normal in course and caliber as well as contour. Bilateral facial nerve canals appear normal. External auditory canals appear unremarkable bilaterally. OTHER FINDINGS: None. IMPRESSION: No evidence of mastoiditis bilaterally. No otitis media.
[2018-03-05] MEDS: Clindamycin 600mg/50ml D5W 600 MG/50 ML VIAL IVPB SCH ×2 (00:22→09:54)
[2018-03-05] MEDS: Dexamethasone 4 mg/1 ml IVP SCH ×2 (00:23→09:55)
[2018-03-05] MEDS: Levothyroxine 100 MCG TAB PO SCH (06:20)
[2018-03-05] MEDS: Pantoprazole 40 mg EC Tab PO SCH (09:52)
[2018-03-05] MEDS: Multivitamin With Minerals Tab PO SCH (09:52)
[2018-03-05] MEDS: HCTZ/Losartan 12.5/50 Tab PO SCH (09:53)
--- NOTE | 2018-03-05 11:14 | CP.PCM.PN ---
Subjective - Date & Time of Evaluation Date of Evaluation: 03/05/18 Time of Evaluation: 11:09 - Subjective Subjective: 82 y/o female patient seen and evaluated for tonsillitis and sepsis. Patient states that her throat improved now and there is no pain with swallowing. She states that she is still having productive cough but less than yesterday. Patient states that she is still having pain in behind and below her ear bilaterally. She denies any nausea or vomiting since she was last seen, Patient states that she had 2 episodes of diarrhea yesterday. She denies having fever or chills since she was last seen yesterday. She denies any chest pain, dizziness, abdominal pain or dysuria. She states that she has some SOB. Objective - Vital Signs/Intake and Output Vital Signs (last 24 hours): Temp Pulse Resp BP Pulse Ox 98.3 F 82 18 120/76 97 03/05/18 08:08 03/05/18 08:08 03/05/18 08:08 03/05/18 08:08 03/05/18 08:08 - Medications Medications: Current Medications Acetaminophen (Tylenol 325mg Tab) 650 mg PO Q6 PRN PRN Reason: Fever >100.4 F Amlodipine Besylate (Norvasc) 10 mg PO DAILY [facility] Last Admin: 03/05/18 09:53 Dose: 10 mg Aspirin (Ecotrin) 81 mg PO DAILY [facility] Last Admin: 03/05/18 09:51 Dose: 81 mg Benzocaine/Menthol (Cepacol Sore Throat) 1 trav PO Q2 PRN PRN Reason: Sore Throat Last Admin: 03/03/18 17:19 Dose: 1 trav Clonazepam (Klonopin) 1 mg PO Q12 [facility] Last Admin: 03/05/18 09:56 Dose: 1 mg Dexamethasone (Decadron Inj) 6 mg IVP Q8 [facility] Last Admin: 03/05/18 09:55 Dose: Not Given HCTZ/Losartan Potassium (Hyzaar 12.5 Mg-50 Mg) 2 tab PO DAILY [facility] Last Admin: 03/05/18 09:53 Dose: 2 tab Home Med (Diclofenac Sodium [Voltaren]) 1 appl TOP Q6 PRN PRN Reason: Pain, Mild (1-3) Clindamycin Phosphate (Cleocin) 600 mg in 50 mls @ 50 mls/hr IVPB Q8 [facility]; Protocol Last Admin: 03/05/18 09:54 Dose: Not Given Lactobacillus Acidophilus (Bacid Acidophilus) 1 cap PO BID [facility] Levothyroxine Sodium (Synthroid) 100 mcg PO DAILY@0630 [facility] Last Admin: 03/05/18 06:20 Dose: 100 mcg Mirtazapine (Remeron 15mg Odt) 15 mg PO HS [facility] Last Admin: 03/04/18 22:22 Dose: 15 mg Montelukast Sodium (Singulair) 10 mg PO HS [facility] Last Admin: 03/04/18 22:22 Dose: 10 mg Multivitamins/Minerals (Therapeutic-M Tab) 1 tab PO DAILY [facility] Last Admin: 03/05/18 09:52 Dose: 1 tab Ondansetron HCl (Zofran Inj) 2 mg IVP Q6 PRN PRN Reason: Nausea/Vomiting Oseltamivir Phosphate (Tamiflu Cap) 75 mg PO BID [facility]; Protocol Stop: 03/07/18 09:00 Last Admin: 03/05/18 09:52 Dose: 75 mg Pantoprazole Sodium (Protonix Ec Tab) 40 mg PO DAILY [facility] Last Admin: 03/05/18 09:52 Dose: 40 mg Pravastatin Sodium (Pravachol) 40 mg PO QPM [facility] Last Admin: 03/04/18 17:00 Dose: 40 mg - Labs Labs: 03/04/18 05:10 03/04/18 05:10 - Constitutional Appears: Well, Non-toxic, No Acute Distress - Head Exam Head Exam: ATRAUMATIC, NORMOCEPHALIC - Eye Exam Eye Exam: EOMI, Normal appearance, PERRL Pupil Exam: NORMAL ACCOMODATION, PERRL - Neck Exam Neck Exam: Full ROM, Normal Inspection, Tenderness Additional comments: Tonsils mildly enlarged, No throat congestion. Pain on palpation of the mastoid process b/l and also at the mandibular rami b/l infront of the ear. - Respiratory Exam Respiratory Exam: Clear to Ausculation Bilateral, NORMAL BREATHING PATTERN - Cardiovascular Exam Cardiovascular Exam: REGULAR RHYTHM - GI/Abdominal Exam GI & Abdominal Exam: Soft, Normal Bowel Sounds - Extremities Exam Extremities Exam: Normal Capillary Refill, Normal Inspection - Back Exam Back Exam: NORMAL INSPECTION - Neurological Exam Neuro motor strength exam: Left Upper Extremity: 5, Right Upper Extremity: 5, Left Lower Extremity: 5, Right Lower Extremity: 5 - Psychiatric Exam Psychiatric exam: Normal Affect, Normal Mood - Skin Skin Exam: Dry, Intact, Normal Color, Warm Assessment and Plan - Assessment and Plan (Free Text) Assessment: 82 y/o female patient seen for tonsillitis and sepsis. Plan: Sepsis, criterias met with elevated HR, Tm and tonsillitis - Acute - Leukocytosis 13.9 (03/05). - S/P IVF, Zosyna nd clinda - Ordered lactobacilus acidophilus tablets BID - Normal Lactate/VBG - C/w IVF - C/w Zosyn 3.3gm Q12, day # 4 - C/w Clinda 600mg Q8H, day # 4 - F/u Ucx and Bcx; No growth after 3 days (preliminary) - Monitor VS closely Tonsillitis/Pharyngitis - Acute - CT: Tonsillitis, no abscess - ENT consult, Dr. Mccormick, recommendations appreciated (Continue with PO Abx after D/C from the hospital) - Cephacol, c/w symptomatic management - Rapid Strep Throat negative, repeat in morning - Throat Cx: negative for beta strep group A. - C/w Fluids and Abx - Advance diet as tolerated - Infectious disease consulted; recommendations appreciated - CT of the mastoid; No abnormalities noted. - Ordered C. Diff serology; Follow up. - Patient monitored for possible respiratory difficulties 2ry to enlarged tonsils. She was evaluated on admission by ENT for possible tonsilar abscess and after reevaluation can be sent home on PO Abx. Patient is improving however can still only tolerate clear liquids. Positive influenza A - Continue Tamiflu 75mg PO BID for 4/5days - Encourage PO intake - Symptomatic/supportive management Congested CXR, possible fluid overload - CXR done; No abnormalities noted. CT chest recommended for further evaluation of the right superior hilar ? mass on CXR. 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 - Echo done; pending report. - F/U pro-BNP Hypertension - Chronic - Controlled - C/w Home medications: Norvasc 10mg daily, HCTZ/Losartan 12.5/50mg 2tabs daily - C/w Aspirin and Statin - F/u HBA1C, Lipids, TSH Gastritis - Chronic, controlled - C/w Protonix 40mg PO daily Mood disorders - C/w Klonopin and Remeron DVT PPX - SCD for now
[2018-03-05 15:59] VITALS: BP 149/85; PULSE 75; RESP 20; TEMP 98.1; O2SAT 95
--- NOTE | 2018-03-05 16:21 | CP.PCM.DIS ---
Provider - Provider Date of Admission: 03/01/18 16:41 Attending physician: Zurdo Vann Time Spent in preparation of Discharge (in minutes): 30 Diagnosis - Discharge Diagnosis (1) Tonsillitis Status: Acute Hospital Course - Lab Results Lab Results: Micro Results 03/01/18 13:00 Blood Blood Culture - Preliminary NO GROWTH AFTER 4 DAYS 03/01/18 14:25 Blood-Venous Blood Culture - Preliminary NO GROWTH AFTER 4 DAYS 03/01/18 19:01 Throat Group A Strep Throat Culture - Final NORMAL SAPROPHYTIC SHE. CULTURE NEGATIVE FOR BETA STREP GROUP A. 03/01/18 17:45 Urine,Clean Catch Urine Culture - Final No Growth (<1,000 CFU/ML) Most Recent Lab Values WBC 13.9 K/uL (4.8-10.8) H 03/04/18 05:10 RBC 4.18 Mil/uL (3.80-5.20) 03/04/18 05:10 Hgb 10.5 g/dL (12.0-16.0) L 03/04/18 05:10 Hct 32.9 % (34.0-47.0) L 03/04/18 05:10 MCV 78.8 fl (81.0-99.0) L 03/04/18 05:10 MCH 25.2 pg (27.0-31.0) L 03/04/18 05:10 MCHC 32.0 g/dL (33.0-37.0) L 03/04/18 05:10 RDW 17.1 % (11.5-14.5) H 03/04/18 05:10 Plt Count 297 K/uL (130-400) 03/04/18 05:10 MPV 7.8 fl (7.2-11.7) 03/04/18 05:10 Neut % (Auto) 90.8 % (50.0-75.0) H 03/04/18 05:10 Lymph % (Auto) 5.5 % (20.0-40.0) L 03/04/18 05:10 [place] % (Auto) 3.6 % (0.0-10.0) 03/04/18 05:10 Eos % (Auto) 0.0 % (0.0-4.0) 03/04/18 05:10 Baso % (Auto) 0.1 % (0.0-2.0) 03/04/18 05:10 Neut # (Auto) 12.6 K/uL (1.8-7.0) H 03/04/18 05:10 Lymph # (Auto) 0.8 K/uL (1.0-4.3) L 03/04/18 05:10 [place] # (Auto) 0.5 K/uL (0.0-0.8) 03/04/18 05:10 Eos # (Auto) 0.0 K/uL (0.0-0.7) 03/04/18 05:10 Baso # (Auto) 0.0 K/uL (0.0-0.2) 03/04/18 05:10 Neutrophils % (Manual) 89 % (42-75) H 03/04/18 05:10 Band Neutrophils % 5 % (0-2) H 03/01/18 11:50 Lymphocytes % (Manual) 7 % (20-50) L 03/04/18 05:10 Monocytes % (Manual) 4 % (0-10) 03/04/18 05:10 Eosinophils % (Manual) 1 % (0-7) 03/01/18 11:50 Platelet Estimate Normal (NORMAL) 03/04/18 05:10 Plt Clumps, EDTA Present 03/02/18 06:00 Large Platelets Present 03/02/18 06:00 Hypochromasia (manual) Slight 03/04/18 05:10 Anisocytosis (manual) Slight 03/02/18 06:00 Microcytosis (manual) Slight 03/01/18 11:50 pO2 43 mm/Hg (30-55) 03/01/18 17:50 VBG pH 7.42 (7.32-7.43) 03/01/18 17:50 VBG pCO2 45 mmHg (40-60) 03/01/18 17:50 VBG HCO3 27.6 mmol/L 03/01/18 17:50 VBG Total CO2 30.6 mmol/L (22-28) H 03/01/18 17:50 VBG O2 Sat (Calc) 83.5 % (40-65) H 03/01/18 17:50 VBG Base Excess 4.0 mmol/L (0.0-2.0) H 03/01/18 17:50 VBG Potassium 3.7 mmol/L (3.6-5.2) 03/01/18 17:50 Sodium 133.0 mmol/L (132-148) 03/01/18 17:50 Chloride 100.0 mmol/L (98-107) 03/01/18 17:50 Glucose 167 mg/dL (65-105) H 03/01/18 17:50 Lactate 0.9 mmol/L (0.7-2.1) 03/01/18 17:50 FiO2 21.0 % 03/01/18 17:50 Sodium 138 mmol/l (132-148) 03/04/18 05:10 Potassium 4.5 MMOL/L (3.6-5.0) 03/04/18 05:10 Chloride 100 mmol/L (98-107) 03/04/18 05:10 Carbon Dioxide 31 mmol/L (22-30) H 03/04/18 05:10 Anion Gap 12 (10-20) 03/04/18 05:10 BUN 23 mg/dl (7-17) H 03/04/18 05:10 Creatinine 0.9 mg/dl (0.7-1.2) 03/04/18 05:10 Est GFR ( Amer) > 60 03/04/18 05:10 Est GFR (Non-Af Amer) 60 03/04/18 05:10 Random Glucose 129 mg/dL (65-105) H 03/04/18 05:10 Hemoglobin A1c 6.3 % (4.2-6.5) 03/02/18 06:00 Calcium 8.4 mg/dL (8.4-10.2) 03/04/18 05:10 Total Bilirubin 0.2 mg/dl (0.2-1.3) 03/04/18 05:10 AST 32 U/L (14-36) 03/04/18 05:10 ALT 26 U/L (9-52) 03/04/18 05:10 Alkaline Phosphatase 72 U/L (38-126) 03/04/18 05:10 NT-Pro-B Natriuret Pep 1110 pg/ml (0-900) H 03/02/18 06:00 Total Protein 7.4 G/DL (6.3-8.2) 03/04/18 05:10 Albumin 3.7 g/dL (3.5-5.0) 03/04/18 05:10 Globulin 3.7 gm/dL (2.2-3.9) 03/04/18 05:10 Albumin/Globulin Ratio 1.0 (1.0-2.1) 03/04/18 05:10 Triglycerides 77 mg/DL (0-149) 03/02/18 06:00 Cholesterol 168 mg/dL (0-199) 03/02/18 06:00 LDL Cholesterol Direct 90 mg/dL (0-129) 03/02/18 06:00 HDL Cholesterol 45 MG/DL (30-70) 03/02/18 06:00 Free T4 1.65 ng/dL (0.78-2.19) 03/02/18 06:00 TSH 3rd Generation 0.15 mIU/ML (0.46-4.68) L 03/02/18 06:00 Venous Blood Potassium 3.7 mmol/L (3.6-5.2) 03/01/18 17:50 Urine Color Yellow (YELLOW) 03/01/18 17:45 Urine Clarity Clear (Clear) 03/01/18 17:45 Urine pH 6.0 (5.0-8.0) 03/01/18 17:45 Ur Specific [place] 1.025 (1.003-1.030) 03/01/18 17:45 Urine Protein Negative mg/dL (NEGATIVE) 03/01/18 17:45 Urine Glucose (UA) Neg mg/dL (Normal) 03/01/18 17:45 Urine Ketones Negative mg/dL (NEGATIVE) 03/01/18 17:45 Urine Blood Moderate (NEGATIVE) 03/01/18 17:45 Urine Nitrate Negative (NEGATIVE) 03/01/18 17:45 Urine Bilirubin Negative (NEGATIVE) 03/01/18 17:45 Urine Urobilinogen 0.2-1.0 mg/dL (0.2-1.0) 03/01/18 17:45 Ur Leukocyte Esterase Neg [place]/uL (Negative) 03/01/18 17:45 Urine RBC (Auto) 2 /hpf (0-3) 03/01/18 17:45 Urine Microscopic WBC 1 /hpf (0-5) 03/01/18 17:45 Ur Squamous Epith Cells < 1 /hpf (0-5) 03/01/18 17:45 C. difficile Ag & Toxin Negative (NEGATIVE) 03/05/18 14:35 Influenza Typ A,B (EIA) Pos for influenza a (NEGATIVE) H 03/01/18 19:01 Grp A Beta Strep Ag Negative (NEGATIVE) 03/01/18 19:01 - Hospital Course Hospital Course: 82 y/o female was admitted for tonsillitis. Pt was monitored for possible respiratory complications due to tonsilar edema. ENT was consulted as well as ID. ENT evaluated pt and imaging was performed for evaluation of possible peritonsilar abscess or mastoiditis. Imaging results returned within normal limits. Pt was started on abx and her edema resolved. ENT evaluated and reported pt was stable for discharge home on PO abx. Pts diet was advanced and she tolerated well. After an uneventful hospital course, she was discharged in stable condition. Meds on DC: Augmentin 875-125mg Q12H x10 days Probiotic QD Discharge Exam - Head Exam Head Exam: ATRAUMATIC, NORMOCEPHALIC - Eye Exam Eye Exam: EOMI, PERRL. absent: Scleral icterus - ENT Exam ENT Exam: Mucous Membranes Moist - Neck Exam Neck exam: Full Rom, Normal Inspection - Respiratory Exam Respiratory Exam: Clear to PA & Lateral, NORMAL BREATHING PATTERN, UNREMARKABLE. absent: Rales, Rhonchi, Wheezes, Respiratory Distress, Stridor - Cardiovascular Exam Cardiovascular Exam: REGULAR RHYTHM, RRR, +S1, +S2. absent: Tachycardia, JVD, Rubs, Systolic Murmur - GI/Abdominal Exam GI & Abdominal Exam: Normal Bowel Sounds, Soft, Unremarkable. absent: Tenderness - Extremities Exam Extremities exam: normal inspection - Neurological Exam Neurological exam: Alert, CN II-XII Intact, Oriented x3 - Psychiatric Exam Psychiatric exam: Normal Affect, Normal Mood Discharge Plan - Discharge Medications Prescriptions: Amoxicillin/Clavulanate [Augmentin 875 MG-125 MG] 1 tab PO Q12H #20 tab Lactobacillus Acidophilus [Bacid Acidophilus] 1 cap PO BID #30 cap - Follow Up Plan Condition: FAIR Disposition: HOME/ ROUTINE Instructions: Flu, Adult (DC), Sore Throat, Adult (DC) Additional Instructions: follow up with pmd in 1 week take antibiotics as prescribed drink plenty of fluids any worsening of symptoms please return to ED for further evaluation and treatment Referrals: Jose Hughes MD [Staff Provider] - Iván Mccormick MD [Staff Provider] -
[2018-03-05] MEDS ORDERED: Lactobacillus Acidophilus 500 MU Cap PO SCH (17:00)
== END 2018-03-05 17:05 | disposition home or self-care (01) | DRG 872 ==
LOC: H.ER 12:11 → H.ERHOLD 16:41 → H.TEL 03-02 13:56
PROVIDERS: ADMIT Hospitalist; ATTEND Hospitalist
DX: A41.9 Sepsis, unspecified organism (principal); J03.90 Acute tonsillitis, unspecified; J10.1 Influenza due to other identified influenza virus with other respiratory manifestations; K29.70 Gastritis, unspecified, without bleeding; Z79.899 Other long term (current) drug therapy; Z86.73 Personal history of transient ischemic attack (TIA), and cerebral infarction without residual deficits; E05.90 Thyrotoxicosis, unspecified without thyrotoxic crisis or storm; F32.9 Major depressive disorder, single episode, unspecified; F41.9 Anxiety disorder, unspecified; H92.03 Otalgia, bilateral; E78.00 Pure hypercholesterolemia, unspecified; E78.5 Hyperlipidemia, unspecified; E03.9 Hypothyroidism, unspecified; I10 Essential (primary) hypertension

== ENCOUNTER 2018-05-15 20:43 | Emergency (ER) | payer MEDICAID, MEDICARE ==
[2018-05-15 20:44] VITALS: BMI 41.1
[2018-05-15] MEDS ORDERED: Iohexol 240 (50 ml) PO ONE (21:53)
--- NOTE | 2018-05-15 21:56 | ED PDOC ---
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 Associated bloating, increased urine frequency. Patient states she had diarrhea yesterday, and afterwards started experiencing some "itching" to the rectal area. Patient also reports right lower back pain, radiating down right buttock/right leg prior to arrival. Denies fever, nausea/vomiting, chest pain, shortness of breath, palpitations. Past Medical History Reviewed: Historical Data, Nursing Documentation, Vital Signs Vital Signs: Last Vital Signs Temp 98.9 F 05/15/18 20:54 Pulse 99 H 05/15/18 20:54 Resp 21 05/15/18 20:54 BP 149/100 H 05/15/18 20:54 Pulse Ox 95 05/15/18 20:54 - Medical History PMH: Anxiety, CVA (x2), Depression, HTN, Hypercholesterolemia, Hyperthyroidism, Hypothyroidism (thyroidectomy) Denies: Diabetes, Hepatitis, HIV, Chronic Kidney Disease, Seizures, Sexually Transmitted Disease - Family History Family History: States: Unknown Family Hx - Home Medications Home Medications: Ambulatory Orders Medication Instructions Recorded Aspirin [Ecotrin] 81 mg PO DAILY 03/01/18 Diclofenac Sodium [Voltaren] 1 appl TOP Q6 PRN 03/01/18 Esomeprazole Magnesium [Nexium] 40 mg PO DAILY 03/01/18 Levothyroxine [Synthroid] 100 mcg PO DAILY 03/01/18 Losartan/Hydrochlorothiazide 1 tab PO DAILY 03/01/18 [Hyzaar 100-25 Tablet] Mirtazapine [Remeron] 15 mg PO HS 03/01/18 Montelukast [Singulair] 10 mg PO HS 03/01/18 Multivitamin/Iron/Folic Acid 1 tab PO DAILY 03/01/18 [Centrum Complete Multivit Tab] Pravastatin Sodium [Pravachol] 40 mg PO QPM 03/01/18 amLODIPine [Norvasc] 10 mg PO DAILY 03/01/18 clonazePAM [Klonopin] 1 mg PO Q12 03/01/18 Amoxicillin/Clavulanate [Augmentin 1 tab PO Q12H #20 tab 03/05/18 875 MG-125 MG] Lactobacillus Acidophilus [Bacid 1 cap PO BID #30 cap 03/05/18 Acidophilus] Acetaminophen [Tylenol 325mg tab] 2 tab PO Q6 PRN #30 tab 05/16/18 Sulfamethoxazole/Trimethoprim 1 tab PO BID #9 tab 05/16/18 [Bactrim DS 800 mg-160 mg] - Allergies Allergies/Adverse Reactions: Allergies Allergy/AdvReac Type Severity Reaction Status Date / Time No Known Allergies Allergy Verified 03/01/18 12:20 Review of Systems ROS Statement: Except As Marked, All Systems Reviewed And Found Negative Gastrointestinal: Positive for: Abdominal Pain Genitourinary Female: Positive for: Frequency Musculoskeletal: Positive for: Back Pain, Leg Pain Physical Exam - Reviewed Nursing Documentation Reviewed: Yes Vital Signs Reviewed: Yes - Physical Exam Appears: Positive for: Well, Non-toxic, No Acute Distress Head Exam: Positive for: ATRAUMATIC, NORMAL INSPECTION, NORMOCEPHALIC Skin: Positive for: Normal Color Eye Exam: Positive for: Normal appearance ENT: Positive for: Normal ENT Inspection Cardiovascular/Chest: Positive for: Regular Rate, Rhythm Respiratory: Positive for: Normal Breath Sounds Gastrointestinal/Abdominal: Positive for: Bowel Sounds, Soft, Tenderness (epigastric, LUQ, suprapubic, LLQ) Back: Positive for: Vertebral Tenderness (lower lspine), Muscle Spasm (right lspine paravertebral tenderness. Right gluteal tenderness). Negative for: L CVA Tenderness, R CVA Tenderness, Decreased ROM Extremity: Positive for: Normal ROM Neurologic/Psych: Positive for: Alert, Oriented (x3) - Laboratory Results Result Diagrams: 05/15/18 22:30 05/15/18 22:30 - ECG O2 Sat by Pulse Oximetry: 95 - Progress ED Course And Treament: -cbc -cmp -lipase -urinalysis -urine c&s CT of the abdomen and pelvis with contrast Clinical statement: Pain. Technique: Multiple axial CT images were obtained from the base of the lungs through the floor of the pelvis utilizing 5 mm axial slices after administration of oral and nonionic intravenous contrast. Coronal and sagittal reconstructions were also obtained. DLP 860.58 Comparison: 02/11/2015. Findings: Chest: The visualized lung bases are clear. Abdomen: The liver, spleen, pancreas, kidneys, gallbladder, and adrenal glands are unremarkable. The aorta demonstrates minimal atherosclerotic calcifications, but is otherwise within normal limits. There is no evidence of abdominal lymphadenopathy or ascites. Pelvis: The bowel is unremarkable, with no obstructive or inflammatory changes. The appendix is normal. The urinary bladder is within normal limits. The other pelvic structures appear grossly intact. There is no evidence of pelvic lymphadenopathy or ascites. Bones: There are no suspicious osseous abnormalities seen. There is minimal degenerative disc disease at L5/S1. Impression: No acute abnormality to explain the patient's pain. Overall stable examination. On re-eval, patient states she is feeling better Patient educated on findings, discharged with rx Bactrim DS (dose given in ED), Tylenol Advised follow up PMD within 2-3 days Return precautions given Disposition - Clinical Impression Clinical Impression: Abdominal discomfort, UTI (urinary tract infection), Low back pain, Lumbar radiculopathy - Patient ED Disposition Is Patient to be Admitted: No Counseled Patient/Family Regarding: Studies Performed, Diagnosis, Need For Followup, Rx Given - Disposition Disposition: Routine/Home Disposition Time: 02:09 Condition: IMPROVED Prescriptions: Acetaminophen [Tylenol 325mg tab] 2 tab PO Q6 PRN #30 tab PRN Reason: Pain, Moderate (4-7) Sulfamethoxazole/Trimethoprim [Bactrim DS 800 mg-160 mg] 1 tab PO BID #9 tab Instructions: Urinary Tract Infections in Adults, Low Back Pain in Adults, Acute Abdomen (Belly Pain), Radiculopathy Forms: [employer] (Welsh) Print Language: TRINIDADIAN
[2018-05-15] MEDS ORDERED: Iohexol 240 (50 ml) ONE (22:21)
[2018-05-15 22:44] LABS: BASO # 0.1 K/uL (0.0-0.2); BASO % 0.6 % (0.0-2.0); EOS # 0.2 K/uL (0.0-0.7); EOS % 2.1 % (0.0-4.0); HEMOGLOBIN 11.1 g/dL (12.0-16.0); LYMPH # 2.7 K/uL (1.0-4.3); LYMPH % 28.9 % (20.0-40.0); MEAN CORPUSCULAR HEMOGLOBIN 25.1 pg (27.0-31.0); MEAN CORPUSCULAR HGB CONC 31.8 g/dL (33.0-37.0); MEAN PLATELET VOLUME 7.9 fl (7.2-11.7); MONO # 0.7 K/uL (0.0-0.8); MONO % 7.3 % (0.0-10.0); NEUT # 5.8 K/uL (1.8-7.0); NEUT % 61.1 % (50.0-75.0); NRBC % 0.1 % (0.0-0.0); RBC 4.42 Mil/uL (3.80-5.20); WHITE BLOOD COUNT 9.5 K/uL (4.8-10.8)
[2018-05-15 22:49] LABS: SQUAMOUS EPITHIAL 3 /hpf (0-5); URINE BILIRUBIN NEGATIVE (NEGATIVE); URINE BLOOD NEGATIVE (NEGATIVE); URINE CLARITY CLEAR (Clear); URINE COLOR STRAW (YELLOW); URINE GLUCOSE (UA) NEG (NEGATIVE); URINE LEUKOCYTE ESTERASE LARGE Leu/uL (Negative); URINE PROTEIN NEGATIVE (NEGATIVE); URINE UROBILINOGEN 0.2-1.0 mg/dL (0.2-1.0)
[2018-05-15 22:53] LABS: ALT/SGPT 24 U/L (9-52); AST/SGOT 30 U/L (14-36); BLOOD UREA NITROGEN 30 mg/dl (7-17); CALCIUM 9.3 mg/dL (8.4-10.2); GFR NON-AFRICAN AMERICAN 60; LIPASE 110 U/L (23-300)
[2018-05-15] MEDS ORDERED: Sodium Chloride 0.9% 1,000 ML IV STA (23:31)
[2018-05-16] MEDS ORDERED: Iohexol 300 100 ML IJ ONE (00:48)
[2018-05-16] MEDS ORDERED: Sodium Chloride 0.9% 50 ML IV ONE (00:48)
[2018-05-16] MEDS ORDERED: Tmp-Smz 800 mg-160 mg DS Tab PO STA (01:58)
[2018-05-16] MEDS ORDERED: Tmp-Smz 800 mg-160 mg DS Tab ONE (02:06)
[2018-05-16 02:34] VITALS: BP 172/72; PULSE 81; RESP 15; TEMP 98.8; O2SAT 97
--- NOTE | 2018-05-16 10:55 | CT ---
Date of service: 05/16/2018 PROCEDURE: CT Abdomen and Pelvis with contrast HISTORY: abd pain COMPARISON: CT scan of the abdomen and pelvis dated 02/11/2015 TECHNIQUE: Contrast dose: 95 mL Omnipaque 300 Radiation dose: Total exam DLP = 860.58 mGy-cm. This CT exam was performed using one or more of the following dose reduction techniques: Automated exposure control, adjustment of the mA and/or kV according to patient size, and/or use of iterative reconstruction technique. FINDINGS: LOWER THORAX: Cardiomegaly. Coronary arterial and valvular calcifications. Emphysema. No focal consolidation or pleural effusion. Left lower lobe calcified granuloma. LIVER: Unremarkable. No gross lesion or ductal dilatation. GALLBLADDER AND BILE DUCTS: Unremarkable. PANCREAS: Unremarkable. No gross lesion or ductal dilatation. SPLEEN: Punctate calcified granulomas redemonstrated. ADRENALS: Unremarkable. No mass. KIDNEYS AND URETERS: Tiny bilateral cysts. No hydronephrosis. No solid mass. VASCULATURE: Unremarkable. No aortic aneurysm. Aortic atherosclerotic calcification present. BOWEL: Unremarkable. No obstruction. No gross mural thickening. APPENDIX: Normal appendix. PERITONEUM: Tiny fat containing umbilical hernia. No free fluid. No free air. LYMPH NODES: Perigastric calcified lymph node. BLADDER: Unremarkable. REPRODUCTIVE: Unremarkable. BONES: Spinal degenerative changes. Grade 1 anterolisthesis of L4 on L5. No acute fracture. OTHER FINDINGS: None. IMPRESSION: No acute abdominal pelvic pathology. Stable findings as above.
--- NOTE | 2018-05-16 23:57 | CARD ---
APPROVED REPORT Date of service: 05/15/2018 EKG Measurement Heart [id number] 144P57 [id number] <Conclusion> Normal sinus rhythm Normal ECG
== END 2018-05-16 02:34 | disposition home or self-care (01) ==
LOC: H.ER 20:43
DX: R10.9 Unspecified abdominal pain (principal); N39.0 Urinary tract infection, site not specified; M54.5 Low back pain; M54.16 Radiculopathy, lumbar region; E03.9 Hypothyroidism, unspecified; E05.90 Thyrotoxicosis, unspecified without thyrotoxic crisis or storm; E78.00 Pure hypercholesterolemia, unspecified; I10 Essential (primary) hypertension; Z79.82 Long term (current) use of aspirin; Z79.899 Other long term (current) drug therapy; Z86.73 Personal history of transient ischemic attack (TIA), and cerebral infarction without residual deficits; F41.9 Anxiety disorder, unspecified; F32.9 Major depressive disorder, single episode, unspecified
CPT/HCPCS: 74177; 80053; 81003; 83690; 85025; 87086; 93005; 96374; 99284; J7040; Q9966; Q9967

== ENCOUNTER 2018-06-05 13:24 | Emergency (ER) | payer MEDICARE, MEDICAID ==
[2018-06-05 13:25] VITALS: BMI 41.1
--- NOTE | 2018-06-05 14:33 | ED PDOC ---
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 Patient states she noticed the bump started today after eating corn starch. Patient also reports itchiness all over body. Patient additionally complaining of chronic back pain. Denies chest pain, shortness of breath, throat swelling, or difficulty swallowing. Past Medical History Reviewed: Historical Data, Nursing Documentation, Vital Signs Vital Signs: Last Vital Signs Temp 97.8 F 06/05/18 13:44 Pulse 98 H 06/05/18 13:44 Resp 19 06/05/18 13:44 BP 131/72 06/05/18 13:44 Pulse Ox 95 06/05/18 13:44 - Medical History PMH: Anxiety, CVA (x2), Depression, HTN, Hypercholesterolemia, Hyperthyroidism, Hypothyroidism (thyroidectomy) Denies: Diabetes, Hepatitis, HIV, Chronic Kidney Disease, Seizures, Sexually Transmitted Disease - Surgical History Surgical History: No Surg Hx - Family History Family History: States: Unknown Family Hx - Home Medications Home Medications: Ambulatory Orders Medication Instructions Recorded Aspirin [Ecotrin] 81 mg PO DAILY 03/01/18 Diclofenac Sodium [Voltaren] 1 appl TOP Q6 PRN 03/01/18 Esomeprazole Magnesium [Nexium] 40 mg PO DAILY 03/01/18 Levothyroxine [Synthroid] 100 mcg PO DAILY 03/01/18 Losartan/Hydrochlorothiazide 1 tab PO DAILY 03/01/18 [Hyzaar 100-25 Tablet] Mirtazapine [Remeron] 15 mg PO HS 03/01/18 Montelukast [Singulair] 10 mg PO HS 03/01/18 Multivitamin/Iron/Folic Acid 1 tab PO DAILY 03/01/18 [Centrum Complete Multivit Tab] Pravastatin Sodium [Pravachol] 40 mg PO QPM 03/01/18 amLODIPine [Norvasc] 10 mg PO DAILY 03/01/18 clonazePAM [Klonopin] 1 mg PO Q12 03/01/18 Amoxicillin/Clavulanate [Augmentin 1 tab PO Q12H #20 tab 03/05/18 875 MG-125 MG] Lactobacillus Acidophilus [Bacid 1 cap PO BID #30 cap 03/05/18 Acidophilus] Acetaminophen [Tylenol 325mg tab] 2 tab PO Q6 PRN #30 tab 05/16/18 Sulfamethoxazole/Trimethoprim 1 tab PO BID #9 tab 05/16/18 [Bactrim DS 800 mg-160 mg] - Allergies Allergies/Adverse Reactions: Allergies Allergy/AdvReac Type Severity Reaction Status Date / Time No Known Allergies Allergy Verified 03/01/18 12:20 Review of Systems ROS Statement: Except As Marked, All Systems Reviewed And Found Negative ENT: Negative for: Throat Swelling Cardiovascular: Negative for: Chest Pain Respiratory: Negative for: Shortness of Breath Musculoskeletal: Positive for: Back Pain Skin: Positive for: Other (itchy bump) Physical Exam - Reviewed Nursing Documentation Reviewed: Yes Vital Signs Reviewed: Yes - Physical Exam Appears: Positive for: No Acute Distress Head Exam: Positive for: ATRAUMATIC, NORMAL INSPECTION, NORMOCEPHALIC Skin: Positive for: Normal Color, Warm, DRY Eye Exam: Positive for: EOMI, Normal appearance, PERRL ENT: Positive for: Normal ENT Inspection Neck: Positive for: Normal, Painless ROM Cardiovascular/Chest: Positive for: Regular Rate, Rhythm. Negative for: Murmur Respiratory: Positive for: Normal Breath Sounds, Other (speaking full sentences). Negative for: Respiratory Distress Gastrointestinal/Abdominal: Positive for: Normal Exam, Soft. Negative for: Tenderness Back: Positive for: Normal Inspection, Vertebral Tenderness (tenderness to bilateral upper back ). Negative for: L CVA Tenderness, R CVA Tenderness Extremity: Positive for: Normal ROM. Negative for: Pedal Edema, Deformity Neurologic/Psych: Positive for: Alert, Oriented (x3). Negative for: Motor/Sensory Deficits - ECG Interpretation Of ECG: NSR @ 87, no ST-T changes. O2 Sat by Pulse Oximetry: 95 (RA) Pulse Ox Interpretation: Normal Medical Decision Making Medical Decision Making: Time: 14:23 Initial Impression: Chronic back pain and pruritus Initial Plan: EKG CXR hydrocortisone Accession No. : [id number] Patient Name / ID : CHERYL CONNELLY / [id number] Exam Date : 06/05/2018 14:21:38 ( Approved ) Study Comment : Sex / Age : / 82Y Creator : Dictator : Cyrus Navarro MD Prescription Benefit Specialist : Truck Dispatcher : Cyrus Navarro MD Approver2 : Report Date : My Comment : Date of service: 06/05/2018 HISTORY: Bilateral upper back pain COMPARISON: Chest radiograph dated 03/01/2018. TECHNIQUE: Chest PA and lateral FINDINGS: LUNGS: No active pulmonary disease. PLEURA: No significant pleural effusion identified. No pneumothorax apparent. CARDIOVASCULAR: Aortic atherosclerotic calcifications. Cardiomediastinal silhouette stably enlarged. OSSEOUS STRUCTURES: Changed. VISUALIZED UPPER ABDOMEN: Normal. OTHER FINDINGS: None. IMPRESSION: No active disease. Scribe Attestation: Documented by Matthew Ventura, acting as a scribe for Betsy Collazo MD. Provider Scribe Attestation: All medical record entries made by the Scribe were at my direction and personally dictated by me. I have reviewed the chart and agree that the record accurately reflects my personal performance of the history, physical exam, medical decision making, and the department course for this patient. I have also personally directed, reviewed, and agree with the discharge instructions and disposition. Disposition - Clinical Impression Clinical Impression: Pruritus, Chronic back pain - Disposition Disposition: Routine/Home Disposition Time: 15:03 Condition: STABLE Additional Instructions: FOLLOW-UP WITH PMD WITHIN 2 DAYS FOR REEVALUATION. Instructions: Chronic Pain (DC) Forms: [employer] (Brazilian) Print Language: MEXICAN
--- NOTE | 2018-06-05 14:44 | RAD ---
Date of service: 06/05/2018 HISTORY: Bilateral upper back pain COMPARISON: Chest radiograph dated 03/01/2018. TECHNIQUE: Chest PA and lateral FINDINGS: LUNGS: No active pulmonary disease. PLEURA: No significant pleural effusion identified. No pneumothorax apparent. CARDIOVASCULAR: Aortic atherosclerotic calcifications. Cardiomediastinal silhouette stably enlarged. OSSEOUS STRUCTURES: Changed. VISUALIZED UPPER ABDOMEN: Normal. OTHER FINDINGS: None. IMPRESSION: No active disease.
[2018-06-05 15:29] VITALS: BP 134/74; PULSE 84; RESP 18; TEMP 98.2
--- NOTE | 2018-06-06 16:58 | CARD ---
APPROVED REPORT Date of service: 06/05/2018 EKG Measurement Heart [id number] FL 128P51 [id number] <Conclusion> Normal sinus rhythm Normal ECG
[2018-06-07 15:55] VITALS: O2SAT 95
== END 2018-06-05 15:20 | disposition home or self-care (01) ==
LOC: H.ER 13:24
DX: M54.9 Dorsalgia, unspecified (principal); L29.9 Pruritus, unspecified

== ENCOUNTER 2018-08-03 14:47 | Emergency (ER) | payer MEDICARE, MEDICAID ==
[2018-08-03 14:47] VITALS: BMI 41.1
[2018-08-03 14:54] VITALS: RESP 18; TEMP 98.2; O2SAT 99
[2018-08-03] MEDS ORDERED: Simethicone 80 mg Chewtab PO STA (16:25)
[2018-08-03 17:22] LABS: BASO # 0.1 K/uL (0.0-0.2); BASO % 0.5 % (0.0-2.0); EOS # 0.1 K/uL (0.0-0.7); EOS % 0.9 % (0.0-4.0); HEMOGLOBIN 11.4 g/dL (12.0-16.0); LYMPH # 2.2 K/uL (1.0-4.3); LYMPH % 16.1 % (20.0-40.0); MEAN CELL VOLUME 76.5 fl (81.0-99.0); MEAN CORPUSCULAR HEMOGLOBIN 25.1 pg (27.0-31.0); MEAN CORPUSCULAR HGB CONC 32.8 g/dL (33.0-37.0); MEAN PLATELET VOLUME 7.4 fl (7.2-11.7); MONO # 0.7 K/uL (0.0-0.8); MONO % 4.9 % (0.0-10.0); NEUT # 10.7 K/uL (1.8-7.0); NEUT % 77.6 % (50.0-75.0); NRBC % 0.2 % (0.0-0.0); RBC 4.52 Mil/uL (3.80-5.20); RED CELL DISTRIBUTION WIDTH 17.7 % (11.5-14.5); WHITE BLOOD COUNT 13.9 K/uL (4.8-10.8)
[2018-08-03 17:37] LABS: SQUAMOUS EPITHIAL 1 /hpf (0-5); URINE BILIRUBIN NEGATIVE (NEGATIVE); URINE BLOOD NEGATIVE (NEGATIVE); URINE CLARITY SLIGHTY-CLOUDY (Clear); URINE COLOR YELLOW (YELLOW); URINE GLUCOSE (UA) NEG (NEGATIVE); URINE LEUKOCYTE ESTERASE NEG Leu/uL (Negative); URINE PROTEIN NEGATIVE (NEGATIVE); URINE UROBILINOGEN 0.2-1.0 mg/dL (0.2-1.0)
[2018-08-03 17:44] LABS: ALB/GLOB RATIO 1.1 (1.0-2.1); ALBUMIN 4.3 g/dL (3.5-5.0); ALT/SGPT 20 U/L (9-52); AST/SGOT 34 U/L (14-36); BLOOD UREA NITROGEN 28 mg/dl (7-17); GFR NON-AFRICAN AMERICAN 60; LIPASE 243 U/L (23-300)
[2018-08-03] MEDS ORDERED: Sodium Chloride 0.9% 50 ML IV ONE (18:05)
[2018-08-03] MEDS ORDERED: Iohexol 300 100 ML IJ ONE (18:05)
--- NOTE | 2018-08-03 18:47 | CT ---
Date of service: 08/03/2018 PROCEDURE: CT Abdomen and Pelvis with contrast HISTORY: abdominal pain COMPARISON: CT abdomen and pelvis with contrast performed 05/16/18 TECHNIQUE: Contrast dose: 95 mL Omnipaque 300 IV Radiation dose: Total exam DLP = 859.05 mGy-cm. This CT exam was performed using one or more of the following dose reduction techniques: Automated exposure control, adjustment of the mA and/or kV according to patient size, and/or use of iterative reconstruction technique. FINDINGS: LOWER THORAX: Mild bibasilar atelectasis. No visible pleural effusion or pneumothorax. Small hiatal hernia. LIVER: Unremarkable. GALLBLADDER AND BILE DUCTS: Unremarkable. PANCREAS: Unremarkable. SPLEEN: Punctate splenic calcifications, likely granulomas. ADRENALS: Unremarkable. KIDNEYS AND URETERS: The kidneys enhance symmetrically. No hydronephrosis or obstructing calculus identified. VASCULATURE: No aortic aneurysm. Dense atherosclerotic calcifications of the aorta branches. BOWEL: Nondistended stomach with evidence of gastric wall thickening. Lack of oral contrast limits evaluation for bowel pathology. Bowel loops appear within normal limits of caliber without evidence of obstruction. APPENDIX: No secondary signs of acute appendicitis. PERITONEUM: No significant free fluid. No definite free air. LYMPH NODES: Perigastric calcified lymph node re-identified. Subcentimeter retroperitoneal mesenteric adenopathy, nonspecific. Bilateral inguinal sub cm lymph nodes, unremarkable. BLADDER: Mild wall thickening minute under distended urinary bladder with minimal associated adjacent inflammatory changes. REPRODUCTIVE: Uterus is present. BONES: Vacuum disc phenomenon at L5-S1. OTHER FINDINGS: 1 cm right lower quadrant rounded density, possibly omental infarct. IMPRESSION: 1 cm right lower quadrant rounded density, possibly omental infarct. Nonspecific sub cm adenopathy as above. Mild urinary bladder wall thickening may be exaggerated distension. Subtle adjacent inflammatory changes evident. Recommend correlation with urinalysis. Gastric wall thickening may be exaggerated by under distension. Correlate clinically. Further evaluation with endoscopy if indicated. Evidence of prior granulomatous infection. Additional findings as above
--- NOTE | 2018-08-03 19:26 | ED PDOC ---
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 states for the past 2 days she's had atraumatic lower back pain radiating down behind both thighs. Reports pain is worsened with movement. Also states she's experienced increased flatulence for the past 2 days. Denies incontinence (stool/urinary), diarrhea, abdominal pain, fever, N/V/D, dysuria, saddle paresthesias, trauma. Past Medical History Reviewed: Historical Data, Nursing Documentation, Vital Signs Vital Signs: Last Vital Signs Temp 98.2 F 08/03/18 14:48 Pulse 98 H 08/03/18 14:48 Resp 18 08/03/18 14:48 BP 151/72 H 08/03/18 14:48 Pulse Ox 99 08/03/18 14:48 - Medical History PMH: Anxiety, CVA (x2), Depression, HTN, Hypercholesterolemia, Hyperthyroidism, Hypothyroidism (thyroidectomy) Denies: Diabetes, Hepatitis, HIV, Chronic Kidney Disease, Seizures, Sexually Transmitted Disease - Family History Family History: States: No Known Family Hx - Home Medications Home Medications: Ambulatory Orders Medication Instructions Recorded Aspirin [Ecotrin] 81 mg PO DAILY 03/01/18 Diclofenac Sodium [Voltaren] 1 appl TOP Q6 PRN 03/01/18 Esomeprazole Magnesium [Nexium] 40 mg PO DAILY 03/01/18 Levothyroxine [Synthroid] 100 mcg PO DAILY 03/01/18 Losartan/Hydrochlorothiazide 1 tab PO DAILY 03/01/18 [Hyzaar 100-25 Tablet] Mirtazapine [Remeron] 15 mg PO HS 03/01/18 Montelukast [Singulair] 10 mg PO HS 03/01/18 Multivitamin/Iron/Folic Acid 1 tab PO DAILY 03/01/18 [Centrum Complete Multivit Tab] Pravastatin Sodium [Pravachol] 40 mg PO QPM 03/01/18 amLODIPine [Norvasc] 10 mg PO DAILY 03/01/18 clonazePAM [Klonopin] 1 mg PO Q12 03/01/18 Amoxicillin/Clavulanate [Augmentin 1 tab PO Q12H #20 tab 03/05/18 875 MG-125 MG] Lactobacillus Acidophilus [Bacid 1 cap PO BID #30 cap 03/05/18 Acidophilus] Acetaminophen [Tylenol 325mg tab] 2 tab PO Q6 PRN #30 tab 05/16/18 Sulfamethoxazole/Trimethoprim 1 tab PO BID #9 tab 05/16/18 [Bactrim DS 800 mg-160 mg] Lidocaine 5% [Lidoderm] 1 ea TD DAILY PRN #10 patch 08/03/18 Metaxalone [Skelaxin] 800 mg PO TID PRN #10 tablet 08/03/18 - Allergies Allergies/Adverse Reactions: Allergies Allergy/AdvReac Type Severity Reaction Status Date / Time No Known Allergies Allergy Verified 03/01/18 12:20 Review of Systems ROS Statement: Except As Marked, All Systems Reviewed And Found Negative Musculoskeletal: Positive for: Back Pain Physical Exam - Physical Exam Appears: Positive for: Well, Non-toxic, No Acute Distress Skin: Positive for: Normal Color, Warm. Negative for: Rash Eye Exam: Positive for: Normal appearance Cardiovascular/Chest: Positive for: Regular Rate, Rhythm Respiratory: Positive for: Normal Breath Sounds Gastrointestinal/Abdominal: Positive for: Normal Exam, Bowel Sounds, Soft. Negative for: Tenderness, Distended Back: Positive for: Normal Inspection. Negative for: L CVA Tenderness, R CVA Tenderness Extremity: Positive for: Other (b/l lower extremity strength 5/5) Neurological/Psych: Positive for: Awake, Alert, Oriented (x3), Gait (steady, unassisted) - Laboratory Results Result Diagrams: 08/03/18 17:16 08/03/18 17:16 Lab Results: Total Bilirubin 0.4 mg/dl (0.2-1.3) 08/03/18 17:16 AST 34 U/L (14-36) 08/03/18 17:16 ALT 20 U/L (9-52) 08/03/18 17:16 Alkaline Phosphatase 93 U/L (38-126) 08/03/18 17:16 Total Protein 8.3 G/DL (6.3-8.2) H 08/03/18 17:16 Albumin 4.3 g/dL (3.5-5.0) 08/03/18 17:16 Globulin 3.9 gm/dL (2.2-3.9) 08/03/18 17:16 Albumin/Globulin Ratio 1.1 (1.0-2.1) 08/03/18 17:16 Lipase 243 U/L (23-300) 08/03/18 17:16 Urine Color Yellow (YELLOW) 08/03/18 17:16 Urine Clarity Slighty-cloudy (Clear) 08/03/18 17:16 Urine pH 5.0 (5.0-8.0) 08/03/18 17:16 Ur Specific [place] 1.015 (1.003-1.030) 08/03/18 17:16 Urine Protein Negative mg/dL (NEGATIVE) 08/03/18 17:16 Urine Glucose (UA) Neg mg/dL (NEGATIVE) 08/03/18 17:16 Urine Ketones Negative mg/dL (NEGATIVE) 08/03/18 17:16 Urine Blood Negative (NEGATIVE) 08/03/18 17:16 Urine Nitrate Negative (NEGATIVE) 08/03/18 17:16 Urine Bilirubin Negative (NEGATIVE) 08/03/18 17:16 Urine Urobilinogen 0.2-1.0 mg/dL (0.2-1.0) 08/03/18 17:16 Ur Leukocyte Esterase Neg Anjana/uL (Negative) 08/03/18 17:16 Urine RBC (Auto) 2 /hpf (0-3) 08/03/18 17:16 Urine Microscopic WBC 1 /hpf (0-5) 08/03/18 17:16 Ur Squamous Epith Cells 1 /hpf (0-5) 08/03/18 17:16 Hyaline Casts 6-10 /hpf (0-2) H 08/03/18 17:16 - ECG O2 Sat by Pulse Oximetry: 99 - Progress ED Course And Treament: Labs, CT abd/pelvis w/ IV contrast ordered. 1843 CT abd/pelvis: 1 cm right lower quadrant rounded density, possibly omental infarct. Nonspecific sub cm adenopathy as above. Mild urinary bladder wall thickening may be exaggerated distension. Subtle adjacent inflammatory changes evident. Recommend correlation with urinalysis. Gastric wall thickening may be exaggerated by under distension. Correlate clinically. Further evaluation with endoscopy if indicated. Evidence of prior granulomatous infection. Additional findings as above On re-evaluation, pt. sleeping comfortably. Easily arousable. Reports complete relief of pain and "gas." Informed of results and advised to f/u with PMD for further evaluation but is to return to ED immediately if symptoms worsen. Disposition - Clinical Impression Clinical Impression: Sciatica - Patient ED Disposition Is Patient to be Admitted: No - Disposition Referrals: [facility] [Outside] Disposition: Routine/Home Disposition Time: 19:30 Condition: IMPROVED Additional Instructions: FOLLOW UP WITH YOUR DOCTOR FOR FURTHER EVALUATION RETURN TO ED IMMEDIATELY IF SYMPTOMS WORSEN GODWIN CHERYL, thank you for letting us take care of you today. Your provider was Kelsy Rosenthal MD and you were treated for B/L LEG NUMBNESS. The emergency medical care you received today was directed at your acute symptoms. If you were prescribed any medication, please fill it and take as directed. It may take several days for your symptoms to resolve. Return to the Emergency Department if your symptoms worsen, do not improve, or if you have any other problems. Please contact your doctor or call one of the physicians/clinics you have been referred to that are listed on the Patient Visit Information form that is included in your discharge packet. Bring any paperwork you were given at discharge with you along with any medications you are taking to your follow up visit. Our treatment cannot replace ongoing medical care by a primary care provider outside of the emergency department. Thank you for allowing the [facility] team to be part of your care today. If you had an X-Ray or CT scan: A Radiologist will review the ED reading if any change in treatment is needed we will contact you. If you had a blood, urine, or wound culture: It will take several days for the results, if any change in treatment is needed we will contact you. If you had an STI test: It will take 48 hours for the results. Please call after 1 week if you have not heard back. Prescriptions: Lidocaine 5% [Lidoderm] 1 ea TD DAILY PRN #10 patch PRN Reason: pain Metaxalone [Skelaxin] 800 mg PO TID PRN #10 tablet PRN Reason: Muscle Spasm Instructions: Sciatica (DC) Forms: [employer] (Cuban) Print Language: KAZAKH
[2018-08-03 20:12] VITALS: BP 143/64; PULSE 78
== END 2018-08-03 19:49 | disposition home or self-care (01) ==
LOC: H.ER 14:47
DX: M54.30 Sciatica, unspecified side (principal); Z86.59 Personal history of other mental and behavioral disorders; I10 Essential (primary) hypertension; E05.90 Thyrotoxicosis, unspecified without thyrotoxic crisis or storm; Z86.73 Personal history of transient ischemic attack (TIA), and cerebral infarction without residual deficits; Z79.899 Other long term (current) drug therapy
CPT/HCPCS: 74177; 80053; 81003; 83690; 85025; 99284; Q9967